=== PATIENT | male | born 1960 | race African-American/Black ===

== ENCOUNTER 2016-08-02 14:19 | Inpatient (IN) | payer OTHER ==
[2016-08-02 17:50] VITALS: BMI 26.6
--- NOTE | 2016-08-02 19:30 | HP ---
Admission ROS [facility] - [facility] Chief Complaint: I WANT TO GO TO REHAB Allergies/Adverse Reactions: Allergies Allergy/AdvReac Type Severity Reaction Status Date / Time peanut Allergy Severe Difficulty Verified 08/02/16 18:09 Breathing History of Present Illness: 55 YEARS OLD MALE WITH LONG HISTORY OF COCAINE NICOTINE DEPENDENCE, HAS DIABETES II HYPERTENSION HYPERLIDIDEMIA, GERD ASTHMA AND DEPRESSION IS ADMITTED TO DETOX Exam Limitations: No Limitations - Ebola screening Have you traveled outside of the country in the last 21 days: No Have you had contact with anyone from an Ebola affected area: No Have you been sick,other than usual withdrawal symptoms: No Do you have a fever: No - Review of Systems Constitutional: No Symptoms Reported EENT: reports: No Symptoms Reported Respiratory: reports: No Symptoms reported Cardiac: reports: No Symptoms Reported GI: reports: No Symptoms Reported : reports: No Symptoms Reported Musculoskeletal: reports: Back Pain Integumentary: reports: No Symptoms Reported Neuro: reports: No Symptoms reported Endocrine: reports: No Symptoms Reported Hematology: reports: No Symptoms Reported Psychiatric: reports: Judgement Intact, Orientated x3, Depressed Other Systems: Reviewed and Negative Patient History - Patient Medical History Hx Anemia: No Hx Asthma: Yes Hx Chronic Obstructive Pulmonary Disease (COPD): No Hx Cancer: No Hx Cardiac Disorders: No Hx Congestive Heart Failure: No Hx Hypertension: Yes Hx Hypercholesterolemia: Yes Hx Pacemaker: No HX Cerebrovascular Accident: No Hx Seizures: No Hx Dementia: No Hx Diabetes: Yes Hx Gastrointestinal Disorders: Yes Hx Liver Disease: No Hx Genitourinary Disorders: No Hx Sexually Transmitted Disorders: No Hx Renal Disease (ESRD): No Hx Thyroid Disease: No Hx Human Immunodeficiency Virus (HIV): No Hx Hepatitis C: No Hx Depression: Yes Hx Suicide Attempt: No Hx Bipolar Disorder: No Hx Schizophrenia: No - Patient Surgical History Past Surgical History: Yes Hx Neurologic Surgery: No Hx Cataract Extraction: No Hx Cardiac Surgery: No Hx Lung Surgery: No Hx Breast Surgery: No Hx Breast Biopsy: No Hx Abdominal Surgery: No Hx Appendectomy: No Hx Cholecystectomy: No Hx Genitourinary Surgery: No Hx Orthopedic Surgery: Yes (RIGHT HAND SHOULDER 2004) Anesthesia Reaction: No - PPD History Previous Implant?: Yes Documented Results: Positive w/o proof Implanted On Prior [facility] Admission?: No PPD to be Administered?: No - Smoking Cessation Smoking history: Current every day smoker Have you smoked in the past 12 months: Yes Aproximately how many cigarettes per day: 7 Cigars Per Day: 0 Hx Chewing Tobacco Use: No Initiated information on smoking cessation: Yes 'Breaking Loose' booklet given: 08/02/16 - Substance & Tx. History Hx Alcohol Use: No Hx Substance Use: Yes Hx Substance Use Treatment: Yes - Substances Abused Cocaine Route: Smoking Frequency: Daily Amount used: 400$ Age of first use: 20 Date of Last Use: 07/31/16 Marijuana/Hashish Route: Smoking Frequency: Daily Amount used: 5 BLUNDS Age of first use: 26 Date of Last Use: 08/02/16 Family Disease History - Family Disease History Family Disease History: Heart Disease: Father Admission Physical Exam S - Vital Signs Vital Signs: Vital Signs - 24 hr 08/02/16 17:48 Temperature 97.3 F L Pulse Rate 91 H Respiratory 18 Rate Blood Pressure 158/103 - Physical General Appearance: Yes: No Apparent Distress, Nourished, Appropriately Dressed HEENTM: Yes: Hearing grossly Normal, Normal ENT Inspection, Normocephalic, Normal Voice Respiratory: Yes: Chest Non-Tender, No Respiratory Distress, No Accessory Muscle Use, Crackles, Wheezing, Expiration Neck: Yes: Supple, Trachea in good position Breast: Yes: Breasts Symetrical Cardiology: Yes: Regular Rhythm, S1, S2, Tachycardia Abdominal: Yes: Non Tender, Soft Genitourinary: Yes: Within Normal Limits Back: Yes: Normal Inspection Musculoskeletal: Yes: full range of Motion, Gait Steady, Back pain, Muscle Pain (RIGHT SHOULDER) Extremities: Yes: Normal Inspection, Normal Range of Motion, Non-Tender Neurological: Yes: Fully Oriented, Alert, Motor Strength 5/5, Normal Response Integumentary: Yes: Warm Lymphatic: Yes: Within Normal Limits - Diagnostic (1) Cocaine dependence, uncomplicated Current Visit: Yes Status: Acute (2) Cannabis dependence, uncomplicated Current Visit: Yes Status: Acute (3) Hypertension Current Visit: Yes Status: Acute Qualifiers: Hypertension type: essential hypertension Qualified Code(s): I10 - Essential (primary) hypertension (4) Diabetes mellitus type II, controlled Current Visit: Yes Status: Acute Qualifiers: Diabetes mellitus complication status: without complication 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: without assisted use Qualified Code(s): E11.9 - Type 2 diabetes mellitus without complications (5) Hyperlipidemia Current Visit: Yes Status: Acute Qualifiers: Hyperlipidemia type: pure hypercholesterolemia Qualified Code(s): E78.0 - Pure hypercholesterolemia (6) Asthma Current Visit: Yes Status: Acute Qualifiers: Asthma severity: mild intermittent Asthma complication type: with status asthmaticus Qualified Code(s): J45.22 - Mild intermittent asthma with status asthmaticus (7) Depression Current Visit: Yes Status: Suspected Qualifiers: Depression Type: dysthymia Qualified Code(s): F34.1 - Dysthymic disorder Comment: WELLBUTRIN + SEROQUEL (8) Nicotine dependence Current Visit: Yes Status: Acute Qualifiers: Nicotine product type: cigarettes Substance use status: in withdrawal Qualified Code(s): F17.213 - Nicotine dependence, cigarettes, with withdrawal (9) Positive PPD, treated Current Visit: Yes Status: Resolved Comment: CHEST X RAY PENDING Cleared for Admission [facility] - Detox or Rehab [facility] Level of Care: Observation Bed Detox Regimen/Protocol: Not Applicable Claeared for Rehab Admission: Yes [facility] Breath Alcohol Content Breath Alcohol Content: 0 Urine Drug Screen - Results Drug Screen Negative: No Urine Drug Screen Results: THC-Marijuana, [place]-Cocaine
[2016-08-02] MEDS ORDERED: MAGNESIUM HYDROX 2400MG/30ML ORAL SUSPENSION 30 ML CUP PO PRN (19:38)
[2016-08-02] MEDS ORDERED: guaiFENesin/D-METHORPHAN HB 10 ML UNIT-DOSE CUPS PO PRN (19:38)
[2016-08-02] MEDS ORDERED: hydrOXYzine PAMOATE 50 MG CAPSULE (FP) PO PRN (19:38)
[2016-08-02] MEDS ORDERED: LOPERAMIDE HCL 2 MG CAPSULE PO PRN (19:38)
[2016-08-02] MEDS ORDERED: NICOTINE POLACRILEX 2 MG GUM BC PRN (19:38)
[2016-08-02] MEDS ORDERED: diphenhydrAMINE HCL 50 MG CAPSULE PO PRN (19:38)
[2016-08-02] MEDS ORDERED: P-EPHED 60MG/TRIPROLIDI 2.5MG TABLET PO PRN (19:38)
[2016-08-02] MEDS ORDERED: MAGNESIUM CITRATE 300 ML BOTTLE PO PRN (19:38)
[2016-08-02] MEDS ORDERED: MENTHOL/PHENOL 1 EACH UD MM PRN (19:38)
[2016-08-02] MEDS: INSULIN SLIDING SCALE (NOVOLOG) 1 VIAL SQ SCH (21:17)
[2016-08-02] MEDS: THIAMINE HCL 100 MG TABLET (FP) PO SCH (21:17)
[2016-08-02] MEDS: LIDOCAINE HCL 5% TOP OINTMENT 50 GM TUBE TP SCH (21:17)
[2016-08-02] MEDS ORDERED: QUEtiapine FUMARATE 300 MG TABLET PO STA (22:34)
[2016-08-02] MEDS ORDERED: PT OWN MED DRAWER 7, Y5N ONE (22:36)
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
[2016-08-03] MEDS ORDERED: glipiZIDE-XL 2.5 MG TAB.ER.24 PO SCH (07:00)
[2016-08-03] MEDS: INSULIN SLIDING SCALE (NOVOLOG) 1 VIAL SQ SCH ×4 (07:33→21:22)
[2016-08-03] MEDS: PRENATAL VITAMINS W/ FOLIC ACID TABLET (FP) PO SCH (09:31)
[2016-08-03] MEDS: ASPIRIN 81 MG CHEWABLE TABLETS PO SCH (09:31)
[2016-08-03] MEDS: NICOTINE 14 MG/24 HOURS TOPICAL PATCH TD SCH (09:33)
[2016-08-03 10:13] LABS: MCH 30.7 pg (25.7-33.7); MCHC 34.9 g/dl (32.0-35.9); MEAN CELL VOLUME 88.1 fl (80-96); MEAN PLT VOLUME 8.5 fl (7.5-11.1); PLATELET COUNT 200 K/MM3 (134-434); RDW 14.2 % (11.9-15.9); WHITE BLOOD COUNT 7.1 K/mm3 (4.0-10.0)
[2016-08-03 10:21] LABS: ALBUMIN 3.3 g/dl (3.4-5.0); ANION GAP 7 (8-16); CALCIUM 8.8 mg/dL (8.5-10.1); CO2 27 mmol/L (21-32); GLUCOSE,RANDOM 101 mg/dL (74-106); SGOT/AST 12 U/L (15-37)
[2016-08-03 10:23] LABS: ALK PHOS 69 U/L (45-117); BILIRUBIN,TOTAL 0.2 mg/dL (0.2-1.0); SGPT/ALT 22 U/L (12-78); TOT PROT 6.6 g/dl (6.4-8.2)
[2016-08-03] MEDS: glipiZIDE-XL 5 MG TAB.ER.24 PO SCH (10:52)
[2016-08-03] MEDS: metFORMIN HCL 500 MG TABLET (FP) PO SCH ×2 (10:52→16:45)
[2016-08-03] MEDS: LIDOCAINE HCL 5% TOP OINTMENT 50 GM TUBE TP SCH ×2 (10:54→21:22)
[2016-08-03] MEDS: PROPRANOLOL HCL 10 MG TABLET (FP) PO SCH ×4 (10:54→21:19)
[2016-08-03] MEDS ORDERED: PNEUMOC 13-VAL CONJ-DIP CRM/PF 0.5 ML DISP.SYRIN IM ONE (12:00)
[2016-08-03] MEDS ORDERED: PNEUMOCOCCAL 23 VACCINE 0.5 ML VIAL IM ONE (12:00)
[2016-08-03] MEDS: PANTOPRAZOLE 40 MG TABLET (FP) PO SCH (12:06)
[2016-08-03] MEDS: ATORVASTATIN CA 20 MG TABLET (FP) PO SCH (12:06)
--- NOTE | 2016-08-03 13:03 | EKG ---
Test Reason : Blood Pressure : / mmHG Vent. Rate : 091 BPM Atrial Rate : 091 BPM P-R Int : 178 ms QRS Dur : 096 ms QT Int : 364 ms P-R-T Axes : -23 074 045 degrees QTc Int : 447 ms NORMAL SINUS RHYTHM VOLTAGE CRITERIA FOR LEFT VENTRICULAR HYPERTROPHY ABNORMAL ECG NO PREVIOUS ECGS AVAILABLE Confirmed by CLARISA HAQ MD ([id number]) on 08/03/2016 1:03:22 PM Referred By: Dahlia Cifuentes Confirmed By:CLARISA HAQ MD
[2016-08-03 13:27] LABS: URINE APPEARANCE CLEAR; URINE BILIRUBIN NEGATIVE (NEGATIVE); URINE BLOOD NEGATIVE (NEGATIVE); URINE COLOR LTYELLOW; URINE GLUCOSE (UA) 2+ (NEGATIVE); URINE KETONE NEGATIVE (NEGATIVE); URINE LEUK ESTERASE NEGATIVE (NEGATIVE); URINE NITRITE NEGATIVE (NEGATIVE); URINE PROTEIN NEGATIVE (NEGATIVE); URINE UROBILINOGEN NEGATIVE E.U./dl (0.2-1.0)
[2016-08-03] MEDS ORDERED: PT OWN MED DRAWER 7, Y5N ONE ×4 (13:40→15:44)
[2016-08-03] MEDS: FLUTICASONE PROP 0.05% 16 GM NASAL SPRAY NS SCH ×2 (13:42→22:24)
[2016-08-03] MEDS: PATIENT'S OWN MEDICATION (NON-FORMULARY) (Fluticasone Propionate [Flovent Diskus] 50 MCG) IH SCH (19:14)
[2016-08-03] MEDS: THIAMINE HCL 100 MG TABLET (FP) PO SCH (21:19)
[2016-08-03] MEDS: QUEtiapine FUMARATE 300 MG TABLET PO SCH (21:21)
[2016-08-04] MEDS: glipiZIDE-XL 5 MG TAB.ER.24 PO SCH (06:09)
[2016-08-04] MEDS: metFORMIN HCL 500 MG TABLET (FP) PO SCH ×2 (06:09→16:51)
[2016-08-04] MEDS: INSULIN SLIDING SCALE (NOVOLOG) 1 VIAL SQ SCH ×4 (06:57→21:28)
[2016-08-04] MEDS ORDERED: PT OWN MED DRAWER 7, Y5N ONE ×3 (08:33→21:29)
[2016-08-04] MEDS: PRENATAL VITAMINS W/ FOLIC ACID TABLET (FP) PO SCH (09:34)
[2016-08-04] MEDS: FLUTICASONE PROP 0.05% 16 GM NASAL SPRAY NS SCH ×2 (09:34→21:29)
[2016-08-04] MEDS: LIDOCAINE HCL 5% TOP OINTMENT 50 GM TUBE TP SCH ×2 (09:34→21:30)
[2016-08-04] MEDS: NICOTINE 14 MG/24 HOURS TOPICAL PATCH TD SCH (09:34)
[2016-08-04] MEDS: PROPRANOLOL HCL 10 MG TABLET (FP) PO SCH ×3 (09:34→21:28)
[2016-08-04] MEDS: ATORVASTATIN CA 20 MG TABLET (FP) PO SCH (09:34)
[2016-08-04] MEDS: ASPIRIN 81 MG CHEWABLE TABLETS PO SCH (09:34)
[2016-08-04] MEDS: PANTOPRAZOLE 40 MG TABLET (FP) PO SCH (09:34)
[2016-08-04] MEDS: ACETAMINOPHEN 325 MG TABLET (FP) PO PRN ×2 (11:33→23:38)
--- NOTE | 2016-08-04 11:53 | PN ---
[facility] Progress Note Note: Pt. C/O headache Vital Signs - 24 hr 08/03/16 08/04/16 08/04/16 20:25 00:30 03:30 Temperature Pulse Rate 93 H Respiratory 16 16 Rate Blood Pressure 167/108 08/04/16 08/04/16 08/04/16 07:11 10:00 11:30 Temperature 98.6 F Pulse Rate 92 H 93 H 95 H Respiratory 18 18 18 Rate Blood Pressure 146/103 154/107 155/104 Dx. : HTN, Uncontrolled P : Lisinopril 20mg BID
[2016-08-04] MEDS: LISINOPRIL 10 MG TABLET (FP) PO SCH ×3 (12:55→21:28)
[2016-08-04] MEDS: THIAMINE HCL 100 MG TABLET (FP) PO SCH (21:27)
[2016-08-04] MEDS: QUEtiapine FUMARATE 300 MG TABLET PO SCH (21:27)
[2016-08-04] MEDS: ALBUTEROL SO4 6.7 GM HFA INHALER IH PRN (21:30)
[2016-08-05] MEDS: glipiZIDE-XL 5 MG TAB.ER.24 PO SCH (07:09)
[2016-08-05] MEDS: metFORMIN HCL 500 MG TABLET (FP) PO SCH ×2 (07:09→16:41)
[2016-08-05] MEDS: INSULIN SLIDING SCALE (NOVOLOG) 1 VIAL SQ SCH ×4 (07:11→22:22)
[2016-08-05] MEDS ORDERED: PT OWN MED DRAWER 7, Y5N ONE ×2 (08:36→21:15)
[2016-08-05] MEDS: PROPRANOLOL HCL 10 MG TABLET (FP) PO SCH ×2 (09:34→21:13)
[2016-08-05] MEDS: LISINOPRIL 10 MG TABLET (FP) PO SCH ×2 (09:34→21:13)
[2016-08-05] MEDS: ASPIRIN 81 MG CHEWABLE TABLETS PO SCH (09:34)
[2016-08-05] MEDS: ATORVASTATIN CA 20 MG TABLET (FP) PO SCH (09:34)
[2016-08-05] MEDS: PANTOPRAZOLE 40 MG TABLET (FP) PO SCH (09:34)
[2016-08-05] MEDS: PRENATAL VITAMINS W/ FOLIC ACID TABLET (FP) PO SCH (09:34)
[2016-08-05] MEDS: NICOTINE 14 MG/24 HOURS TOPICAL PATCH TD SCH (09:34)
[2016-08-05] MEDS: ACETAMINOPHEN 325 MG TABLET (FP) PO PRN (09:34)
[2016-08-05] MEDS: LIDOCAINE HCL 5% TOP OINTMENT 50 GM TUBE TP SCH ×2 (09:35→21:14)
[2016-08-05] MEDS: FLUTICASONE PROP 0.05% 16 GM NASAL SPRAY NS SCH ×2 (09:35→21:13)
[2016-08-05] MEDS ORDERED: INSULIN (NOVOLOG) ASPART 100 UNITS/ML 10ML VIAL ONE (11:33)
[2016-08-05] MEDS: CYCLOBENZAPRINE HCL 10 MG TABLET (FP) PO PRN (16:44)
[2016-08-05] MEDS: IBUPROFEN 600 MG TABLET (FP) PO PRN (16:44)
[2016-08-05] MEDS: QUEtiapine FUMARATE 300 MG TABLET PO SCH (21:13)
[2016-08-05] MEDS: THIAMINE HCL 100 MG TABLET (FP) PO SCH (21:13)
[2016-08-05] MEDS: ALBUTEROL SO4 6.7 GM HFA INHALER IH PRN (21:14)
[2016-08-06] MEDS: metFORMIN HCL 500 MG TABLET (FP) PO SCH ×2 (06:09→16:51)
[2016-08-06] MEDS: glipiZIDE-XL 5 MG TAB.ER.24 PO SCH (06:09)
[2016-08-06] MEDS: INSULIN SLIDING SCALE (NOVOLOG) 1 VIAL SQ SCH ×4 (06:10→21:14)
[2016-08-06] MEDS: IBUPROFEN 600 MG TABLET (FP) PO PRN ×2 (09:04→17:37)
[2016-08-06] MEDS: CYCLOBENZAPRINE HCL 10 MG TABLET (FP) PO PRN ×2 (09:07→17:36)
[2016-08-06] MEDS: PANTOPRAZOLE 40 MG TABLET (FP) PO SCH (09:43)
[2016-08-06] MEDS: PRENATAL VITAMINS W/ FOLIC ACID TABLET (FP) PO SCH (09:43)
[2016-08-06] MEDS: ATORVASTATIN CA 20 MG TABLET (FP) PO SCH (09:43)
[2016-08-06] MEDS: NICOTINE 14 MG/24 HOURS TOPICAL PATCH TD SCH (09:43)
[2016-08-06] MEDS: ASPIRIN 81 MG CHEWABLE TABLETS PO SCH (09:43)
[2016-08-06] MEDS: LISINOPRIL 10 MG TABLET (FP) PO SCH ×2 (09:43→21:15)
[2016-08-06] MEDS: PROPRANOLOL HCL 10 MG TABLET (FP) PO SCH ×2 (09:43→21:15)
[2016-08-06] MEDS: FLUTICASONE PROP 0.05% 16 GM NASAL SPRAY NS SCH ×2 (09:45→21:18)
[2016-08-06] MEDS: LIDOCAINE HCL 5% TOP OINTMENT 50 GM TUBE TP SCH ×2 (10:43→21:17)
[2016-08-06] MEDS ORDERED: PT OWN MED DRAWER 7, Y5N ONE (19:36)
[2016-08-06] MEDS: THIAMINE HCL 100 MG TABLET (FP) PO SCH (21:15)
[2016-08-06] MEDS: QUEtiapine FUMARATE 300 MG TABLET PO SCH (21:15)
[2016-08-07] MEDS: metFORMIN HCL 500 MG TABLET (FP) PO SCH ×2 (07:44→16:51)
[2016-08-07] MEDS: INSULIN SLIDING SCALE (NOVOLOG) 1 VIAL SQ SCH ×4 (07:44→21:19)
[2016-08-07] MEDS: glipiZIDE-XL 5 MG TAB.ER.24 PO SCH (07:44)
[2016-08-07] MEDS: PROPRANOLOL HCL 10 MG TABLET (FP) PO SCH ×2 (09:41→21:14)
[2016-08-07] MEDS: ATORVASTATIN CA 20 MG TABLET (FP) PO SCH (09:41)
[2016-08-07] MEDS: PANTOPRAZOLE 40 MG TABLET (FP) PO SCH (09:41)
[2016-08-07] MEDS: PRENATAL VITAMINS W/ FOLIC ACID TABLET (FP) PO SCH (09:41)
[2016-08-07] MEDS: ASPIRIN 81 MG CHEWABLE TABLETS PO SCH (09:41)
[2016-08-07] MEDS: LISINOPRIL 10 MG TABLET (FP) PO SCH ×2 (09:42→21:14)
[2016-08-07] MEDS: CYCLOBENZAPRINE HCL 10 MG TABLET (FP) PO PRN ×2 (09:44→21:13)
[2016-08-07] MEDS: IBUPROFEN 600 MG TABLET (FP) PO PRN ×2 (09:44→21:13)
[2016-08-07] MEDS: NICOTINE 14 MG/24 HOURS TOPICAL PATCH TD SCH (09:45)
[2016-08-07] MEDS: LIDOCAINE HCL 5% TOP OINTMENT 50 GM TUBE TP SCH ×2 (09:45→21:15)
[2016-08-07] MEDS: FLUTICASONE PROP 0.05% 16 GM NASAL SPRAY NS SCH ×2 (10:34→23:17)
[2016-08-07] MEDS: THIAMINE HCL 100 MG TABLET (FP) PO SCH (21:13)
[2016-08-07] MEDS: QUEtiapine FUMARATE 300 MG TABLET PO SCH (21:13)
[2016-08-07] MEDS ORDERED: PT OWN MED DRAWER 7, Y5N ONE (21:15)
[2016-08-07] MEDS ORDERED: INSULIN (NOVOLOG) ASPART 100 UNITS/ML 10ML VIAL ONE (21:18)
[2016-08-08] MEDS: INSULIN SLIDING SCALE (NOVOLOG) 1 VIAL SQ SCH ×3 (07:21→16:49)
[2016-08-08] MEDS: glipiZIDE-XL 5 MG TAB.ER.24 PO SCH (07:21)
[2016-08-08] MEDS: metFORMIN HCL 500 MG TABLET (FP) PO SCH ×2 (07:21→16:47)
[2016-08-08] MEDS: ASPIRIN 81 MG CHEWABLE TABLETS PO SCH (09:38)
[2016-08-08] MEDS: LISINOPRIL 10 MG TABLET (FP) PO SCH ×2 (09:38→21:16)
[2016-08-08] MEDS: PROPRANOLOL HCL 10 MG TABLET (FP) PO SCH ×2 (09:38→21:16)
[2016-08-08] MEDS: PANTOPRAZOLE 40 MG TABLET (FP) PO SCH (09:38)
[2016-08-08] MEDS: NICOTINE 14 MG/24 HOURS TOPICAL PATCH TD SCH (09:38)
[2016-08-08] MEDS: PRENATAL VITAMINS W/ FOLIC ACID TABLET (FP) PO SCH (09:38)
[2016-08-08] MEDS: ATORVASTATIN CA 20 MG TABLET (FP) PO SCH (09:38)
[2016-08-08] MEDS: LIDOCAINE HCL 5% TOP OINTMENT 50 GM TUBE TP SCH ×2 (09:40→21:18)
[2016-08-08] MEDS: FLUTICASONE PROP 0.05% 16 GM NASAL SPRAY NS SCH ×2 (09:40→21:16)
[2016-08-08] MEDS ORDERED: PT OWN MED DRAWER 7, Y5N ONE (19:23)
[2016-08-08] MEDS: QUEtiapine FUMARATE 300 MG TABLET PO SCH (21:16)
[2016-08-08] MEDS: THIAMINE HCL 100 MG TABLET (FP) PO SCH (21:16)
[2016-08-09] MEDS: glipiZIDE-XL 5 MG TAB.ER.24 PO SCH (06:02)
[2016-08-09] MEDS: metFORMIN HCL 500 MG TABLET (FP) PO SCH ×2 (06:02→16:50)
[2016-08-09] MEDS: INSULIN SLIDING SCALE (NOVOLOG) 1 VIAL SQ SCH ×2 (06:04→17:52)
[2016-08-09] MEDS: ASPIRIN 81 MG CHEWABLE TABLETS PO SCH (09:36)
[2016-08-09] MEDS: FLUTICASONE PROP 0.05% 16 GM NASAL SPRAY NS SCH ×2 (09:37→21:09)
[2016-08-09] MEDS: PANTOPRAZOLE 40 MG TABLET (FP) PO SCH (09:37)
[2016-08-09] MEDS: ATORVASTATIN CA 20 MG TABLET (FP) PO SCH (09:37)
[2016-08-09] MEDS: PROPRANOLOL HCL 10 MG TABLET (FP) PO SCH ×2 (09:37→21:08)
[2016-08-09] MEDS: LIDOCAINE HCL 5% TOP OINTMENT 50 GM TUBE TP SCH ×2 (09:37→21:09)
[2016-08-09] MEDS: LISINOPRIL 10 MG TABLET (FP) PO SCH ×2 (09:37→21:08)
[2016-08-09] MEDS: PRENATAL VITAMINS W/ FOLIC ACID TABLET (FP) PO SCH (09:37)
[2016-08-09] MEDS: NICOTINE 14 MG/24 HOURS TOPICAL PATCH TD SCH (09:37)
[2016-08-09] MEDS: ALBUTEROL SO4 6.7 GM HFA INHALER IH PRN (09:39)
[2016-08-09] MEDS: CYCLOBENZAPRINE HCL 10 MG TABLET (FP) PO PRN (16:51)
[2016-08-09] MEDS: IBUPROFEN 600 MG TABLET (FP) PO PRN (16:51)
[2016-08-09] MEDS: THIAMINE HCL 100 MG TABLET (FP) PO SCH (21:08)
[2016-08-09] MEDS: QUEtiapine FUMARATE 300 MG TABLET PO SCH (21:08)
[2016-08-09] MEDS ORDERED: PT OWN MED DRAWER 7, Y5N ONE (21:09)
[2016-08-10] MEDS: glipiZIDE-XL 5 MG TAB.ER.24 PO SCH (07:30)
[2016-08-10] MEDS: INSULIN SLIDING SCALE (NOVOLOG) 1 VIAL SQ SCH ×2 (07:30→16:50)
[2016-08-10] MEDS: metFORMIN HCL 500 MG TABLET (FP) PO SCH ×2 (07:30→16:49)
[2016-08-10] MEDS: ASPIRIN 81 MG CHEWABLE TABLETS PO SCH (09:53)
[2016-08-10] MEDS: PANTOPRAZOLE 40 MG TABLET (FP) PO SCH (09:53)
[2016-08-10] MEDS: PROPRANOLOL HCL 10 MG TABLET (FP) PO SCH ×2 (09:53→21:10)
[2016-08-10] MEDS: LISINOPRIL 10 MG TABLET (FP) PO SCH ×2 (09:53→21:11)
[2016-08-10] MEDS: PRENATAL VITAMINS W/ FOLIC ACID TABLET (FP) PO SCH (09:53)
[2016-08-10] MEDS: ATORVASTATIN CA 20 MG TABLET (FP) PO SCH (09:53)
[2016-08-10] MEDS: NICOTINE 14 MG/24 HOURS TOPICAL PATCH TD SCH (09:53)
[2016-08-10] MEDS: FLUTICASONE PROP 0.05% 16 GM NASAL SPRAY NS SCH ×2 (09:54→21:12)
[2016-08-10] MEDS: LIDOCAINE HCL 5% TOP OINTMENT 50 GM TUBE TP SCH ×2 (09:55→21:12)
--- NOTE | 2016-08-10 11:19 | PN ---
[facility] Progress Note Note: Patient reported to nursing staff yesterday that he is given an injection every 2 weeks. A consent from patient was faxed to [facility] where patient receives psychiatric outpatient services requesting information about patient's diagnosis and treatment. Received return fax from [facility] this morning with information requested. According to the fax, patient is diagnosed with Bipolar I Disorder, Most Recent Episode Hypomanic and Polysubstance use Disorder. He is on Wellbutrin XL 300 mg po daily, Seroquel 300 mg po HS and Prolixin Decanoate 37.5 mg IM ever 2 weeks. He last got that injection on 07/31/16 and next one is due on 08/14/16
[2016-08-10] MEDS: THIAMINE HCL 100 MG TABLET (FP) PO SCH (21:06)
[2016-08-10] MEDS: CYCLOBENZAPRINE HCL 10 MG TABLET (FP) PO PRN (21:09)
[2016-08-10] MEDS: QUEtiapine FUMARATE 300 MG TABLET PO SCH (21:10)
[2016-08-10] MEDS: IBUPROFEN 600 MG TABLET (FP) PO PRN (21:10)
[2016-08-10] MEDS: ALBUTEROL SO4 6.7 GM HFA INHALER IH PRN (21:11)
[2016-08-10] MEDS ORDERED: PT OWN MED DRAWER 7, Y5N ONE (21:12)
[2016-08-11] MEDS: metFORMIN HCL 500 MG TABLET (FP) PO SCH ×2 (07:20→16:48)
[2016-08-11] MEDS: INSULIN SLIDING SCALE (NOVOLOG) 1 VIAL SQ SCH ×2 (07:21→16:49)
[2016-08-11] MEDS: glipiZIDE-XL 5 MG TAB.ER.24 PO SCH (07:21)
[2016-08-11] MEDS: LIDOCAINE HCL 5% TOP OINTMENT 50 GM TUBE TP SCH ×2 (09:30→21:30)
[2016-08-11] MEDS: FLUTICASONE PROP 0.05% 16 GM NASAL SPRAY NS SCH ×2 (09:30→21:29)
[2016-08-11] MEDS: PROPRANOLOL HCL 10 MG TABLET (FP) PO SCH ×2 (09:31→21:28)
[2016-08-11] MEDS: ATORVASTATIN CA 20 MG TABLET (FP) PO SCH (09:31)
[2016-08-11] MEDS: PANTOPRAZOLE 40 MG TABLET (FP) PO SCH (09:31)
[2016-08-11] MEDS: PRENATAL VITAMINS W/ FOLIC ACID TABLET (FP) PO SCH (09:31)
[2016-08-11] MEDS: LISINOPRIL 10 MG TABLET (FP) PO SCH ×2 (09:31→21:28)
[2016-08-11] MEDS: ASPIRIN 81 MG CHEWABLE TABLETS PO SCH (09:31)
[2016-08-11] MEDS: NICOTINE 14 MG/24 HOURS TOPICAL PATCH TD SCH (09:32)
[2016-08-11] MEDS: IBUPROFEN 600 MG TABLET (FP) PO PRN (21:27)
[2016-08-11] MEDS: CYCLOBENZAPRINE HCL 10 MG TABLET (FP) PO PRN (21:27)
[2016-08-11] MEDS: QUEtiapine FUMARATE 300 MG TABLET PO SCH (21:28)
[2016-08-11] MEDS: THIAMINE HCL 100 MG TABLET (FP) PO SCH (21:29)
[2016-08-12] MEDS: metFORMIN HCL 500 MG TABLET (FP) PO SCH ×2 (07:40→16:52)
[2016-08-12] MEDS: glipiZIDE-XL 5 MG TAB.ER.24 PO SCH (07:40)
[2016-08-12] MEDS: INSULIN SLIDING SCALE (NOVOLOG) 1 VIAL SQ SCH ×2 (07:40→16:54)
[2016-08-12] MEDS: PROPRANOLOL HCL 10 MG TABLET (FP) PO SCH ×2 (09:36→21:23)
[2016-08-12] MEDS: PANTOPRAZOLE 40 MG TABLET (FP) PO SCH (09:36)
[2016-08-12] MEDS: ASPIRIN 81 MG CHEWABLE TABLETS PO SCH (09:36)
[2016-08-12] MEDS: PRENATAL VITAMINS W/ FOLIC ACID TABLET (FP) PO SCH (09:36)
[2016-08-12] MEDS: ATORVASTATIN CA 20 MG TABLET (FP) PO SCH (09:36)
[2016-08-12] MEDS: LISINOPRIL 10 MG TABLET (FP) PO SCH ×2 (09:36→21:23)
[2016-08-12] MEDS: NICOTINE 14 MG/24 HOURS TOPICAL PATCH TD SCH (09:37)
[2016-08-12] MEDS: FLUTICASONE PROP 0.05% 16 GM NASAL SPRAY NS SCH ×2 (09:37→21:47)
[2016-08-12] MEDS: LIDOCAINE HCL 5% TOP OINTMENT 50 GM TUBE TP SCH ×2 (09:37→21:24)
[2016-08-12] MEDS: CYCLOBENZAPRINE HCL 10 MG TABLET (FP) PO PRN (09:37)
[2016-08-12] MEDS ORDERED: PT OWN MED DRAWER 7, Y5N ONE (16:56)
[2016-08-12] MEDS: ACETAMINOPHEN 325 MG TABLET (FP) PO PRN (21:22)
[2016-08-12] MEDS: QUEtiapine FUMARATE 300 MG TABLET PO SCH (21:23)
[2016-08-12] MEDS: THIAMINE HCL 100 MG TABLET (FP) PO SCH (21:24)
[2016-08-13] MEDS: glipiZIDE-XL 5 MG TAB.ER.24 PO SCH (06:40)
[2016-08-13] MEDS: metFORMIN HCL 500 MG TABLET (FP) PO SCH ×2 (06:40→16:51)
[2016-08-13] MEDS: INSULIN SLIDING SCALE (NOVOLOG) 1 VIAL SQ SCH ×2 (06:41→16:52)
[2016-08-13] MEDS: PRENATAL VITAMINS W/ FOLIC ACID TABLET (FP) PO SCH (09:57)
[2016-08-13] MEDS: ASPIRIN 81 MG CHEWABLE TABLETS PO SCH (09:57)
[2016-08-13] MEDS: PROPRANOLOL HCL 10 MG TABLET (FP) PO SCH ×2 (09:58→21:17)
[2016-08-13] MEDS: LISINOPRIL 10 MG TABLET (FP) PO SCH ×2 (09:58→21:16)
[2016-08-13] MEDS: PANTOPRAZOLE 40 MG TABLET (FP) PO SCH (09:58)
[2016-08-13] MEDS: FLUTICASONE PROP 0.05% 16 GM NASAL SPRAY NS SCH ×2 (09:59→21:18)
[2016-08-13] MEDS: LIDOCAINE HCL 5% TOP OINTMENT 50 GM TUBE TP SCH ×2 (10:00→21:17)
[2016-08-13] MEDS: ATORVASTATIN CA 20 MG TABLET (FP) PO SCH (10:00)
[2016-08-13] MEDS: NICOTINE 14 MG/24 HOURS TOPICAL PATCH TD SCH (10:00)
[2016-08-13] MEDS ORDERED: PT OWN MED DRAWER 7, Y5N ONE ×2 (10:02→21:16)
[2016-08-13] MEDS: ACETAMINOPHEN 325 MG TABLET (FP) PO PRN (10:02)
[2016-08-13] MEDS: THIAMINE HCL 100 MG TABLET (FP) PO SCH (21:16)
[2016-08-13] MEDS: CYCLOBENZAPRINE HCL 10 MG TABLET (FP) PO PRN (21:16)
[2016-08-13] MEDS: QUEtiapine FUMARATE 300 MG TABLET PO SCH (21:17)
[2016-08-13] MEDS: ALBUTEROL SO4 6.7 GM HFA INHALER IH PRN (21:18)
[2016-08-14] MEDS: INSULIN SLIDING SCALE (NOVOLOG) 1 VIAL SQ SCH ×2 (07:36→16:49)
[2016-08-14] MEDS: metFORMIN HCL 500 MG TABLET (FP) PO SCH ×2 (07:36→16:48)
[2016-08-14] MEDS: glipiZIDE-XL 5 MG TAB.ER.24 PO SCH (07:36)
[2016-08-14] MEDS ORDERED: PT OWN MED DRAWER 7, Y5N ONE ×2 (08:29→21:12)
[2016-08-14] MEDS: ASPIRIN 81 MG CHEWABLE TABLETS PO SCH (09:33)
[2016-08-14] MEDS: PROPRANOLOL HCL 10 MG TABLET (FP) PO SCH ×2 (09:33→21:10)
[2016-08-14] MEDS: LISINOPRIL 10 MG TABLET (FP) PO SCH ×2 (09:33→21:11)
[2016-08-14] MEDS: PANTOPRAZOLE 40 MG TABLET (FP) PO SCH (09:33)
[2016-08-14] MEDS: ATORVASTATIN CA 20 MG TABLET (FP) PO SCH (09:33)
[2016-08-14] MEDS: NICOTINE 14 MG/24 HOURS TOPICAL PATCH TD SCH (09:34)
[2016-08-14] MEDS: LIDOCAINE HCL 5% TOP OINTMENT 50 GM TUBE TP SCH ×2 (09:34→21:12)
[2016-08-14] MEDS: FLUTICASONE PROP 0.05% 16 GM NASAL SPRAY NS SCH ×2 (09:34→21:11)
[2016-08-14] MEDS: PRENATAL VITAMINS W/ FOLIC ACID TABLET (FP) PO SCH (09:34)
[2016-08-14] MEDS ORDERED: fluPHENAZine DECANOATE 125 MG/5ML VIAL IM ONE (10:00)
[2016-08-14] MEDS: QUEtiapine FUMARATE 300 MG TABLET PO SCH (21:10)
[2016-08-14] MEDS: THIAMINE HCL 100 MG TABLET (FP) PO SCH (21:10)
[2016-08-14] MEDS: CYCLOBENZAPRINE HCL 10 MG TABLET (FP) PO PRN (21:10)
[2016-08-14] MEDS: ALBUTEROL SO4 6.7 GM HFA INHALER IH PRN (21:12)
[2016-08-15] MEDS: metFORMIN HCL 500 MG TABLET (FP) PO SCH ×2 (07:07→16:42)
[2016-08-15] MEDS: glipiZIDE-XL 5 MG TAB.ER.24 PO SCH (07:07)
[2016-08-15] MEDS: INSULIN SLIDING SCALE (NOVOLOG) 1 VIAL SQ SCH ×2 (07:07→16:43)
[2016-08-15] MEDS: MAG HYDROX/AL HYDROX/SIMETH 30 ML UNIT-DOSE CUP PO PRN ×2 (07:07→14:40)
--- NOTE | 2016-08-15 07:45 | PN ---
Psychiatric Progress Note Vital Signs: Vital Signs Period Temp Pulse Resp BP Sys/Rivas Pulse Ox Last 24 Hr 98.5 F 96-111 18-20 113-120/68-76 Date of Session: 08/15/16 Chief Complaint:: Psychiatrist Discharge Note HPI: Patient addressing Cocaine, Cannabis Dependence and Alcohol Abuse comorbid with Nicotine Dependence and Bipolar I Disorder ROS: Asthma, HTN, Hyperlipidemia, type 2 DM were medically managed Current Medications: Active Medications Generic Name Dose Route Start Last Admin Trade Name Freq PRN Reason Stop Dose Admin Acetaminophen 650 mg 08/02/16 19:38 08/13/16 10:02 Tylenol - PO 650 mg Q4H PRN Administration PAIN Al Hydroxide/Mg Hydroxide 30 ml 08/02/16 19:38 08/15/16 07:07 Mylanta Oral Suspension - PO 30 ml Q6H PRN Administration DYSPEPSIA Albuterol Sulfate 2 puff 08/02/16 19:48 08/14/16 21:12 Ventolin Hfa Inhaler - IH 2 puff Q4H PRN Administration SHORT OF BREATH/WHEEZING Aspirin 81 mg 08/03/16 10:00 08/14/16 09:33 Asa - PO 81 mg DAILY OLIVERIO Administration Atorvastatin Calcium 20 mg 08/03/16 11:24 08/14/16 09:33 Lipitor - PO 20 mg DAILY OLIVERIO Administration Bupropion HCl 300 mg 08/03/16 11:45 08/14/16 09:34 Wellbutrin Xl - PO 300 mg DAILY OLIVERIO Administration Cyclobenzaprine HCl 10 mg 08/05/16 16:28 08/14/16 21:10 Flexeril - PO 10 mg TID PRN Administration MUSCLE SPASMS Diphenhydramine HCl 50 mg 08/02/16 19:38 Benadryl - PO HSMR1 PRN INSOMNIA Eucalyptus/Menthol/Phenol/Sorbitol 1 each 08/02/16 19:38 Cepastat Lozenge - MM Q4H PRN SORE THROAT Fluticasone Propionate 1 spray 08/03/16 12:00 08/14/16 21:11 Flonase - NS Not Given BID OLIVERIO Glipizide 5 mg 08/03/16 10:00 08/15/16 07:07 Glucotrol Xl - PO 5 mg DAILY@0700 OLIVERIO Administration Guaifenesin 10 ml 08/02/16 19:38 Robitussin Dm - PO Q6H PRN COUGH Hydroxyzine Pamoate 50 mg 08/02/16 19:38 Vistaril - PO Q4H PRN AGITATION Ibuprofen 600 mg 08/05/16 16:27 08/11/16 21:27 Motrin - PO 600 mg Q4H PRN Administration PAIN Insulin Aspart 1 vial 08/08/16 16:30 08/15/16 07:07 Novolog Vial Sliding Scale - SQ Not Given BIDAC [facility] Protocol Lidocaine HCl 1 applic 08/02/16 22:00 08/14/16 21:12 Xylocaine 5% Top. Ointment TP 1 applic BID OLIVERIO Administration Lisinopril 20 mg 08/04/16 12:00 08/14/16 21:11 Prinivil PO 20 mg BID OLIVERIO Administration Loperamide HCl 4 mg 08/02/16 19:38 Imodium - PO Q6H PRN DIARRHEA Magnesium Citrate 300 ml 08/02/16 19:38 Citroma - PO Q48H PRN CONSTIPATION Magnesium Hydroxide 30 ml 08/02/16 19:38 Milk Of Magnesia - PO DAILY PRN CONSTIPATION Metformin HCl 1,000 mg 08/03/16 10:00 08/15/16 07:07 Glucophage - PO 1,000 mg BID@0700,1630 [facility] Administration Nicotine 14 mg 08/03/16 10:00 08/14/16 09:34 Nicoderm Patch - TD Not Given DAILY OLIVERIO Nicotine Polacrilex 2 mg 08/02/16 19:38 Nicorette Gum - BC Q2H PRN NICOTINE REPLACEMENT RX Pantoprazole Sodium 40 mg 08/03/16 11:20 08/14/16 09:33 Protonix - PO 40 mg DAILY OLIVERIO Administration Multivit/Folic Acid/Iron 1 tab 08/03/16 10:00 08/14/16 09:34 Vitamins ([facility]) - PO 1 tab DAILY [facility] Administration Propranolol HCl 10 mg 08/02/16 10:15 08/14/16 21:10 Inderal - PO 10 mg BID OLIVERIO Administration Pseudoephedrine/Triprolidine 1 combo 08/02/16 19:38 Actifed - PO TID PRN NASAL CONGESTION Quetiapine Fumarate 300 mg 08/03/16 22:00 08/14/16 21:10 Seroquel - PO 300 mg HS OLIVERIO Administration Thiamine HCl 100 mg 08/02/16 22:00 08/14/16 21:10 Vitamin B1 - PO 100 mg HS OLIVERIO Administration Current Side Effect: No Lab tests ordered: Yes Lab tests reviewed: Yes Provider note:: Patient will complete this program on 08/15/16. He has met his treatment goals and will continue to address his issues in outpatient treatment at [facility]. 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 He responded well to Wellbutrin XL 300 mg po daily, Seroquel 300 mg po HS and Prolixin Decanoate 37.5 mg IM administered last on 08/14/16(next due on 08/28/16) . Scripts for 30 days supply of medications(Wellbutrin XL & Seroquel) will be electronically transmitted to [facility] at [address] [place] [address] . He is stable for discharge on 08/15/16 Total face to face time:: 35 Mental Status Exam - Mental Status Exam Alert and Oriented to: Time, Place, Person Cognitive Function: Fair Patient Appearance: Well Groomed Mood: Hopeful, Euthymic Affect: Appropriate Patient Behavior: Cooperative Speech Pattern: Clear Voice Loudness: Normal Thought Process: Intact Thought Disorder: Not Present Hallucinations: Denies Suicidal Ideation: Denies Homicidal Ideation: Denies Insight/Judgement: Fair Sleep: Fair Appetite: Good Muscle strength/Tone: Normal Gait/Station: Normal Psychiatric Treatment Plan - Problem List (1) Cocaine dependence, uncomplicated Current Visit: Yes (2) Cannabis dependence, uncomplicated Current Visit: Yes (3) Alcohol abuse Current Visit: Yes (4) Nicotine dependence Current Visit: Yes (5) Asthma Current Visit: Yes Qualifiers: Asthma severity: mild intermittent Asthma complication type: with status asthmaticus Qualified Code(s): J45.22 - Mild intermittent asthma with status asthmaticus (6) Diabetes mellitus type II, controlled Current Visit: Yes Qualifiers: Diabetes mellitus complication status: without complication Diabetes mellitus custodial insulin use: without custodial use Qualified Code(s): E11.9 - Type 2 diabetes mellitus without complications (7) Hyperlipidemia Current Visit: Yes Qualifiers: Hyperlipidemia type: pure hypercholesterolemia Qualified Code(s): E78.00 - Pure hypercholesterolemia, unspecified; E78.0 - Pure hypercholesterolemia (8) Hypertension Current Visit: Yes Qualifiers: Hypertension type: essential hypertension Qualified Code(s): I10 - Essential (primary) hypertension (9) MDD (major depressive disorder), recurrent, severe, with psychosis Current Visit: Yes Initial treatment plan: Patient will be discharged tomorrow and referred to [facility] for outpatient treatment
[2016-08-15] MEDS: FLUTICASONE PROP 0.05% 16 GM NASAL SPRAY NS SCH ×2 (09:30→21:16)
[2016-08-15] MEDS: ASPIRIN 81 MG CHEWABLE TABLETS PO SCH (09:30)
[2016-08-15] MEDS: ATORVASTATIN CA 20 MG TABLET (FP) PO SCH (09:30)
[2016-08-15] MEDS: NICOTINE 14 MG/24 HOURS TOPICAL PATCH TD SCH (09:30)
[2016-08-15] MEDS: LISINOPRIL 10 MG TABLET (FP) PO SCH ×2 (09:30→21:15)
[2016-08-15] MEDS: PROPRANOLOL HCL 10 MG TABLET (FP) PO SCH ×2 (09:30→21:15)
[2016-08-15] MEDS: PRENATAL VITAMINS W/ FOLIC ACID TABLET (FP) PO SCH (09:30)
[2016-08-15] MEDS: PANTOPRAZOLE 40 MG TABLET (FP) PO SCH (09:33)
[2016-08-15] MEDS: LIDOCAINE HCL 5% TOP OINTMENT 50 GM TUBE TP SCH ×2 (09:33→21:16)
[2016-08-15] MEDS: THIAMINE HCL 100 MG TABLET (FP) PO SCH (21:14)
[2016-08-15] MEDS: QUEtiapine FUMARATE 300 MG TABLET PO SCH (21:14)
[2016-08-15] MEDS: CYCLOBENZAPRINE HCL 10 MG TABLET (FP) PO PRN (21:14)
[2016-08-15] MEDS: ALBUTEROL SO4 6.7 GM HFA INHALER IH PRN (21:16)
[2016-08-15] MEDS ORDERED: PT OWN MED DRAWER 7, Y5N ONE (21:16)
[2016-08-16 06:44] VITALS: TEMP 97.4
[2016-08-16] MEDS: metFORMIN HCL 500 MG TABLET (FP) PO SCH (07:24)
[2016-08-16] MEDS: glipiZIDE-XL 5 MG TAB.ER.24 PO SCH (07:24)
[2016-08-16] MEDS: INSULIN SLIDING SCALE (NOVOLOG) 1 VIAL SQ SCH (07:25)
[2016-08-16 09:44] VITALS: BP 138/79; PULSE 105
[2016-08-16] MEDS: PROPRANOLOL HCL 10 MG TABLET (FP) PO SCH (09:53)
[2016-08-16] MEDS: PANTOPRAZOLE 40 MG TABLET (FP) PO SCH (09:53)
[2016-08-16] MEDS: LISINOPRIL 10 MG TABLET (FP) PO SCH (09:53)
[2016-08-16] MEDS: PRENATAL VITAMINS W/ FOLIC ACID TABLET (FP) PO SCH (09:53)
[2016-08-16] MEDS: ASPIRIN 81 MG CHEWABLE TABLETS PO SCH (09:53)
[2016-08-16] MEDS: NICOTINE 14 MG/24 HOURS TOPICAL PATCH TD SCH (09:54)
[2016-08-16] MEDS: LIDOCAINE HCL 5% TOP OINTMENT 50 GM TUBE TP SCH (09:54)
[2016-08-16] MEDS: ATORVASTATIN CA 20 MG TABLET (FP) PO SCH (09:54)
[2016-08-16] MEDS: CYCLOBENZAPRINE HCL 10 MG TABLET (FP) PO PRN (09:54)
[2016-08-16] MEDS: FLUTICASONE PROP 0.05% 16 GM NASAL SPRAY NS SCH (09:54)
== END 2016-08-16 10:19 | disposition home or self-care (01) | DRG 895 ==
LOC: YASAS 14:19 → Y3W 18:53
PROVIDERS: ADMIT Psychiatry & Neurology Psychiatry; ATTEND Psychiatry & Neurology Psychiatry
PROC: HZ42ZZZ Group Counseling for Substance Abuse Treatment, Cognitive-Behavioral (ICD-10-PCS; principal; 2016-08-02)
DX: F14.20 Cocaine dependence, uncomplicated (principal); F33.3 Major depressive disorder, recurrent, severe with psychotic symptoms; J45.22 Mild intermittent asthma with status asthmaticus; F12.20 Cannabis dependence, uncomplicated; F10.10 Alcohol abuse, uncomplicated; F17.210 Nicotine dependence, cigarettes, uncomplicated; I10 Essential (primary) hypertension; E78.5 Hyperlipidemia, unspecified; E11.9 Type 2 diabetes mellitus without complications; K21.9 Gastro-esophageal reflux disease without esophagitis; R00.0 Tachycardia, unspecified; R76.11 Nonspecific reaction to tuberculin skin test without active tuberculosis
CPT/HCPCS: 36415; 71020-TC; 80053; 81003; 85027; 86593; 90732; 93005; 93010; G0009

== ENCOUNTER 2020-10-01 10:46 | Inpatient (IN) | payer OTHER ==
[2020-10-01 12:08] VITALS: BMI 26.1
[2020-10-01] MEDS ORDERED: NICOTINE POLACRILEX 2 MG GUM BC PRN (16:59)
[2020-10-01] MEDS ORDERED: MAG HYDROX/AL HYDROX/SIMETH 30 ML UNIT-DOSE CUP PO PRN (16:59)
[2020-10-01] MEDS ORDERED: MAGNESIUM CITRATE 300 ML BOTTLE PO PRN (16:59)
[2020-10-01] MEDS ORDERED: LOPERAMIDE HCL 2 MG CAPSULE PO PRN (16:59)
[2020-10-01] MEDS ORDERED: IBUPROFEN 400 MG TABLET (FP) PO PRN (16:59)
[2020-10-01] MEDS ORDERED: MAGNESIUM HYDROX 2400MG/30ML ORAL SUSPENSION 30 ML CUP PO PRN (16:59)
[2020-10-01] MEDS ORDERED: P-EPHED 60MG/TRIPROLIDI 2.5MG TABLET PO PRN (16:59)
[2020-10-01] MEDS ORDERED: guaiFENesin 200 MG/10 ML 10 ML UNIT-DOSE CUPS PO PRN (16:59)
[2020-10-01] MEDS ORDERED: ACETAMINOPHEN 325 MG TABLET (FP) PO PRN (16:59)
[2020-10-01] MEDS ORDERED: ALBUTEROL SO4 HFA INHALER IH PRN (17:55)
[2020-10-01] MEDS: MELATONIN 5 MG TABLETS PO SCH (21:39)
[2020-10-01] MEDS: FLUTICASONE PROP 0.05% 16 GM NASAL SPRAY NS SCH (21:39)
[2020-10-01] MEDS: THIAMINE HCL 100 MG TABLET (FP) PO SCH (21:39)
[2020-10-01] MEDS: hydrOXYzine PAMOATE 25 MG CAPSULE (FP) PO PRN (21:40)
[2020-10-02 02:09] LABS: EPI CELLS 3 /uL (0-25.1); HYALINE CASTS 0 /uL (0-3.1); PH,URINE 5.5 (5.0-8.0); URINE APPEARANCE CLEAR; URINE BACTERIA 17 /uL (0-1359); URINE BILIRUBIN NEGATIVE (NEGATIVE); URINE COLOR YELLOW; URINE GLUCOSE (UA) 2+ (NEGATIVE); URINE KETONE TRACE (NEGATIVE); URINE LEUK ESTERASE NEGATIVE (NEGATIVE); URINE NITRITE NEGATIVE (NEGATIVE); URINE PROTEIN 1+ (NEGATIVE); URINE RBC 6 /uL (0-23.9); URINE WBC 8 /uL (0-25.8)
[2020-10-02] MEDS: glipiZIDE-XL 5 MG TAB.ER.24 PO SCH (06:13)
[2020-10-02] MEDS: LISINOPRIL 10 MG TABLET PO SCH (10:24)
[2020-10-02] MEDS: PANTOPRAZOLE 40 MG TABLET PO SCH (10:24)
[2020-10-02] MEDS: ASPIRIN 81 MG CHEWABLE TABLETS PO SCH (10:24)
[2020-10-02] MEDS: TAMSULOSIN HCL 0.4 MG CAP PO SCH (10:24)
[2020-10-02] MEDS: PRENATAL VITAMINS W/ FOLIC ACID TABLET (FP) PO SCH (10:24)
[2020-10-02] MEDS: FLUTICASONE PROP 0.05% 16 GM NASAL SPRAY NS SCH ×2 (10:24→21:18)
[2020-10-02 12:19] LABS: CALCIUM 8.2 mg/dL (8.5-10.1); HEMATOCRIT 32.8 % (35.4-49); HEMOGLOBIN 11.7 GM/dL (11.7-16.9); MCH 31.2 pg (25.7-33.7); MCHC 35.8 g/dl (32.0-35.9); MEAN CELL VOLUME 87.1 fl (80-96); MEAN PLT VOLUME 8.7 fl (7.5-11.1); PLATELET COUNT 194 K/MM3 (134-434); RBC 3.77 M/mm3 (4.00-5.60); RDW 14.1 % (11.9-15.9); WHITE BLOOD COUNT 4.6 K/mm3 (4.0-10.0)
[2020-10-02 12:20] LABS: BLOOD UREA NITROGEN 15.3 mg/dL (7-18)
[2020-10-02 12:23] LABS: CREATININE 1.3 mg/dL (0.55-1.3)
[2020-10-02 12:24] LABS: BILIRUBIN,TOTAL 0.4 mg/dL (0.2-1)
[2020-10-02 12:25] LABS: TOT PROT 6.6 g/dl (6.4-8.2)
[2020-10-02] MEDS: MELATONIN 5 MG TABLETS PO SCH (21:18)
[2020-10-02] MEDS: THIAMINE HCL 100 MG TABLET (FP) PO SCH (21:18)
[2020-10-02] MEDS: hydrOXYzine PAMOATE 25 MG CAPSULE (FP) PO PRN (21:20)
[2020-10-03] MEDS: glipiZIDE-XL 5 MG TAB.ER.24 PO SCH (06:29)
[2020-10-03] MEDS: TAMSULOSIN HCL 0.4 MG CAP PO SCH (07:39)
[2020-10-03] MEDS: PRENATAL VITAMINS W/ FOLIC ACID TABLET (FP) PO SCH (09:56)
[2020-10-03] MEDS: LISINOPRIL 10 MG TABLET PO SCH (09:57)
[2020-10-03] MEDS: PANTOPRAZOLE 40 MG TABLET PO SCH (09:57)
[2020-10-03] MEDS: ASPIRIN 81 MG CHEWABLE TABLETS PO SCH (09:57)
[2020-10-03] MEDS: hydrOXYzine PAMOATE 25 MG CAPSULE (FP) PO PRN ×2 (09:57→21:22)
[2020-10-03] MEDS: FLUTICASONE PROP 0.05% 16 GM NASAL SPRAY NS SCH ×2 (09:58→21:22)
[2020-10-03] MEDS: MELATONIN 5 MG TABLETS PO SCH (21:21)
[2020-10-03] MEDS: THIAMINE HCL 100 MG TABLET (FP) PO SCH (21:21)
[2020-10-04 06:06] LABS: SARS-CoV-2 NAA Not Detected (Not Detected)
[2020-10-04] MEDS: glipiZIDE-XL 5 MG TAB.ER.24 PO SCH (06:09)
[2020-10-04] MEDS: TAMSULOSIN HCL 0.4 MG CAP PO SCH (07:41)
[2020-10-04] MEDS: PRENATAL VITAMINS W/ FOLIC ACID TABLET (FP) PO SCH (10:00)
[2020-10-04] MEDS: PANTOPRAZOLE 40 MG TABLET PO SCH (10:01)
[2020-10-04] MEDS: LISINOPRIL 10 MG TABLET PO SCH (10:01)
[2020-10-04] MEDS: FLUTICASONE PROP 0.05% 16 GM NASAL SPRAY NS SCH ×2 (10:01→21:15)
[2020-10-04] MEDS: ASPIRIN 81 MG CHEWABLE TABLETS PO SCH (10:01)
[2020-10-04] MEDS: hydrOXYzine PAMOATE 25 MG CAPSULE (FP) PO PRN (10:01)
[2020-10-04] MEDS: MELATONIN 5 MG TABLETS PO SCH (21:15)
[2020-10-04] MEDS: THIAMINE HCL 100 MG TABLET (FP) PO SCH (21:15)
[2020-10-04] MEDS: QUEtiapine FUMARATE 100 MG TABLET (FP) PO SCH (21:16)
[2020-10-05] MEDS: TAMSULOSIN HCL 0.4 MG CAP PO SCH (07:44)
[2020-10-05] MEDS: PANTOPRAZOLE 40 MG TABLET PO SCH (10:04)
[2020-10-05] MEDS: LISINOPRIL 10 MG TABLET PO SCH (10:04)
[2020-10-05] MEDS: ASPIRIN 81 MG CHEWABLE TABLETS PO SCH (10:04)
[2020-10-05] MEDS: PRENATAL VITAMINS W/ FOLIC ACID TABLET (FP) PO SCH (10:04)
[2020-10-05] MEDS: glipiZIDE-XL 5 MG TAB.ER.24 PO SCH (10:48)
[2020-10-05] MEDS: FLUTICASONE PROP 0.05% 16 GM NASAL SPRAY NS SCH ×2 (10:48→21:12)
[2020-10-05] MEDS: THIAMINE HCL 100 MG TABLET (FP) PO SCH (21:12)
[2020-10-05] MEDS: MELATONIN 5 MG TABLETS PO SCH (21:12)
[2020-10-05] MEDS: QUEtiapine FUMARATE 100 MG TABLET (FP) PO SCH (21:12)
[2020-10-06] MEDS: glipiZIDE-XL 5 MG TAB.ER.24 PO SCH (06:53)
[2020-10-06] MEDS: TAMSULOSIN HCL 0.4 MG CAP PO SCH (07:36)
[2020-10-06] MEDS: ASPIRIN 81 MG CHEWABLE TABLETS PO SCH (10:18)
[2020-10-06] MEDS: PANTOPRAZOLE 40 MG TABLET PO SCH (10:18)
[2020-10-06] MEDS: LISINOPRIL 10 MG TABLET PO SCH (10:18)
[2020-10-06] MEDS: PRENATAL VITAMINS W/ FOLIC ACID TABLET (FP) PO SCH (10:18)
[2020-10-06] MEDS: FLUTICASONE PROP 0.05% 16 GM NASAL SPRAY NS SCH ×2 (10:19→21:23)
[2020-10-06] MEDS: QUEtiapine FUMARATE 100 MG TABLET (FP) PO SCH ×2 (15:42→21:22)
[2020-10-06] MEDS: THIAMINE HCL 100 MG TABLET (FP) PO SCH (21:22)
[2020-10-06] MEDS: MELATONIN 5 MG TABLETS PO SCH (21:22)
[2020-10-07] MEDS: glipiZIDE-XL 5 MG TAB.ER.24 PO SCH (06:46)
[2020-10-07 07:17] VITALS: TEMP 96.8
[2020-10-07] MEDS: LISINOPRIL 10 MG TABLET PO SCH (10:35)
[2020-10-07] MEDS: PRENATAL VITAMINS W/ FOLIC ACID TABLET (FP) PO SCH (10:35)
[2020-10-07] MEDS: PANTOPRAZOLE 40 MG TABLET PO SCH (10:35)
[2020-10-07] MEDS: ASPIRIN 81 MG CHEWABLE TABLETS PO SCH (10:35)
[2020-10-07] MEDS: FLUTICASONE PROP 0.05% 16 GM NASAL SPRAY NS SCH (10:35)
[2020-10-07] MEDS: hydrOXYzine PAMOATE 25 MG CAPSULE (FP) PO PRN (10:36)
[2020-10-07] MEDS: TAMSULOSIN HCL 0.4 MG CAP PO SCH (11:28)
[2020-10-07 12:29] VITALS: BP 136/91; PULSE 115
[2020-10-07] MEDS ORDERED: LIDOCAINE 5% TOPICAL PATCH TP SCH (13:30)
[2020-10-07] MEDS ORDERED: LIDOCAINE PATCH REMOVAL MC SCH (22:00)
== END 2020-10-07 13:23 | disposition short-term general hospital (02) | DRG 895 ==
LOC: YASAS 10:46 → Y3W 17:37
PROVIDERS: ADMIT Allergy & Immunology; ATTEND Allergy & Immunology
PROC: HZ42ZZZ Group Counseling for Substance Abuse Treatment, Cognitive-Behavioral (ICD-10-PCS; principal; 2020-10-01)
DX: F10.20 Alcohol dependence, uncomplicated (principal); F14.20 Cocaine dependence, uncomplicated; F33.3 Major depressive disorder, recurrent, severe with psychotic symptoms; F12.20 Cannabis dependence, uncomplicated; F17.210 Nicotine dependence, cigarettes, uncomplicated; F20.9 Schizophrenia, unspecified; F19.24 Other psychoactive substance dependence with psychoactive substance-induced mood disorder; I10 Essential (primary) hypertension; E11.9 Type 2 diabetes mellitus without complications; E78.00 Pure hypercholesterolemia, unspecified; J45.909 Unspecified asthma, uncomplicated; N40.0 Benign prostatic hyperplasia without lower urinary tract symptoms; Z98.890 Other specified postprocedural states; Z91.010 Allergy to peanuts; Z91.012 Allergy to eggs; Z79.84 Long term (current) use of oral hypoglycemic drugs
CPT/HCPCS: 36415; 71046-TC-FY; 80053; 81003; 82962; 85027; 86780; 93005; 93010; C9803; U0003; U0005

== ENCOUNTER 2020-12-29 13:10 | Inpatient (IN) | payer OTHER ==
[2020-12-29 14:14] VITALS: BMI 25.4
[2020-12-29] MEDS ORDERED: MAGNESIUM HYDROX 2400MG/30ML ORAL SUSPENSION 30 ML CUP PO PRN (19:04)
[2020-12-29] MEDS ORDERED: METHOCARBAMOL 500 MG TABLET PO PRN (19:04)
[2020-12-29] MEDS ORDERED: BISMUTH SUBSALICYLATE 524 MG/30 ML PO PRN (19:04)
[2020-12-29] MEDS ORDERED: LORazepam 1 MG TABLET PO PRN (19:04)
[2020-12-29] MEDS ORDERED: MAGNESIUM CITRATE 300 ML BOTTLE PO PRN (19:04)
[2020-12-29] MEDS ORDERED: MENTHOL/PHENOL 1 EACH UD MM PRN (19:04)
[2020-12-29] MEDS ORDERED: IBUPROFEN 400 MG TABLET (FP) PO PRN (19:04)
[2020-12-29] MEDS ORDERED: MAG HYDROX/AL HYDROX/SIMETH 30 ML UNIT-DOSE CUP PO PRN (19:04)
[2020-12-29] MEDS ORDERED: NICOTINE 10 MG CARTRIDGE (INHALER) IH PRN (19:04)
[2020-12-29] MEDS ORDERED: ACETAMINOPHEN 325 MG TABLET (FP) PO PRN ×2 (19:04)
[2020-12-29] MEDS ORDERED: ONDANSETRON *ODT* 4 MG TABLET SL PRN (19:04)
[2020-12-29] MEDS ORDERED: ALBUTEROL SO4 HFA INHALER IH PRN (19:07)
[2020-12-29] MEDS: LISINOPRIL 10 MG TABLET PO SCH (22:51)
[2020-12-29] MEDS: QUEtiapine FUMARATE 100 MG TABLET (FP) PO SCH (22:55)
[2020-12-29] MEDS: THIAMINE HCL 100 MG TABLET (FP) PO SCH (22:55)
[2020-12-29] MEDS: TAMSULOSIN HCL 0.4 MG CAP PO SCH (22:55)
[2020-12-29] MEDS: LORazepam 2 MG TABLET PO SCH (22:55)
[2020-12-29] MEDS: MELATONIN 5 MG TABLETS PO SCH (22:56)
[2020-12-29] MEDS: PRENATAL VITAMINS W/ FOLIC ACID TABLET (FP) PO SCH (22:56)
[2020-12-29] MEDS: hydrOXYzine PAMOATE 25 MG CAPSULE (FP) PO SCH (22:57)
[2020-12-29] MEDS: propRANOLol HCL 10 MG TABLET PO SCH (23:55)
[2020-12-29] MEDS: LIDOCAINE HCL 5% TOP OINTMENT 50 GM TUBE TP SCH (23:56)
[2020-12-30] MEDS: LORazepam 2 MG TABLET PO SCH ×4 (07:02→22:09)
[2020-12-30] MEDS: hydrOXYzine PAMOATE 25 MG CAPSULE (FP) PO SCH (07:02)
[2020-12-30] MEDS ORDERED: hydrOXYzine PAMOATE 25 MG CAPSULE (FP) PO PRN (07:21)
[2020-12-30] MEDS: glipiZIDE-XL 5 MG TAB.ER.24 PO SCH (08:01)
[2020-12-30] MEDS: PRENATAL VITAMINS W/ FOLIC ACID TABLET (FP) PO SCH (10:27)
[2020-12-30] MEDS: ASPIRIN 81 MG CHEWABLE TABLETS PO SCH (10:28)
[2020-12-30] MEDS: PANTOPRAZOLE 40 MG TABLET PO SCH (10:28)
[2020-12-30] MEDS: LISINOPRIL 10 MG TABLET PO SCH ×2 (10:28→22:08)
[2020-12-30] MEDS: FINASTERIDE 5 MG TABLET (FP) PO SCH (10:28)
[2020-12-30] MEDS: propRANOLol HCL 10 MG TABLET PO SCH ×2 (10:28→22:09)
[2020-12-30] MEDS: ATORVASTATIN CA 20 MG TABLET (FP) PO SCH (10:28)
[2020-12-30] MEDS: LIDOCAINE HCL 5% TOP OINTMENT 50 GM TUBE TP SCH ×2 (10:29→22:10)
[2020-12-30] MEDS: FLUTICASONE PROP 0.05% 16 GM NASAL SPRAY NS SCH (11:13)
[2020-12-30 11:45] LABS: HEMATOCRIT 32.5 % (35.4-49); HEMOGLOBIN 11.6 GM/dL (11.7-16.9); MCHC 35.8 g/dl (32.0-35.9); MEAN CELL VOLUME 86.7 fl (80-96); MEAN PLT VOLUME 8.5 fl (7.5-11.1); PLATELET COUNT 223 10^3/uL (134-434); RBC 3.74 M/mm3 (4.00-5.60); RDW 14.2 % (11.9-15.9); WHITE BLOOD COUNT 5.5 K/mm3 (4.0-10.0)
[2020-12-30 11:56] LABS: BLOOD UREA NITROGEN 15.6 mg/dL (7-18)
[2020-12-30 11:57] LABS: ALBUMIN 2.8 g/dl (3.4-5.0)
[2020-12-30 12:00] LABS: CREATININE 1.2 mg/dL (0.55-1.3)
[2020-12-30 12:01] LABS: BILIRUBIN,TOTAL 0.2 mg/dL (0.2-1); TOT PROT 6.3 g/dl (6.4-8.2)
[2020-12-30] MEDS: THIAMINE HCL 100 MG TABLET (FP) PO SCH (22:08)
[2020-12-30] MEDS: TAMSULOSIN HCL 0.4 MG CAP PO SCH (22:08)
[2020-12-30] MEDS: QUEtiapine FUMARATE 100 MG TABLET (FP) PO SCH (22:08)
[2020-12-30] MEDS: MELATONIN 5 MG TABLETS PO SCH (22:09)
[2020-12-31] MEDS: LORazepam 1 MG TABLET PO SCH ×4 (06:01→22:22)
[2020-12-31] MEDS: glipiZIDE-XL 5 MG TAB.ER.24 PO SCH (06:03)
[2020-12-31] MEDS: PRENATAL VITAMINS W/ FOLIC ACID TABLET (FP) PO SCH (10:22)
[2020-12-31] MEDS: LISINOPRIL 10 MG TABLET PO SCH ×2 (10:22→22:21)
[2020-12-31] MEDS: ASPIRIN 81 MG CHEWABLE TABLETS PO SCH (10:22)
[2020-12-31] MEDS: FINASTERIDE 5 MG TABLET (FP) PO SCH (10:22)
[2020-12-31] MEDS: FLUTICASONE PROP 0.05% 16 GM NASAL SPRAY NS SCH (10:22)
[2020-12-31] MEDS: propRANOLol HCL 10 MG TABLET PO SCH ×2 (10:22→22:22)
[2020-12-31] MEDS: PANTOPRAZOLE 40 MG TABLET PO SCH (10:22)
[2020-12-31] MEDS: ATORVASTATIN CA 20 MG TABLET (FP) PO SCH (10:23)
[2020-12-31] MEDS: LIDOCAINE HCL 5% TOP OINTMENT 50 GM TUBE TP SCH ×2 (10:27→22:22)
[2020-12-31] MEDS: TAMSULOSIN HCL 0.4 MG CAP PO SCH (22:21)
[2020-12-31] MEDS: QUEtiapine FUMARATE 100 MG TABLET (FP) PO SCH (22:21)
[2020-12-31] MEDS: THIAMINE HCL 100 MG TABLET (FP) PO SCH (22:21)
[2020-12-31] MEDS: MELATONIN 5 MG TABLETS PO SCH (22:22)
[2021-01-01] MEDS ORDERED: LORazepam 0.5 MG TABLET PO PRN
[2021-01-01] MEDS: LORazepam 0.5 MG TABLET PO SCH ×4 (05:27→22:20)
[2021-01-01] MEDS: glipiZIDE-XL 5 MG TAB.ER.24 PO SCH (06:04)
[2021-01-01] MEDS: propRANOLol HCL 10 MG TABLET PO SCH ×2 (10:33→22:19)
[2021-01-01] MEDS: ATORVASTATIN CA 20 MG TABLET (FP) PO SCH (10:33)
[2021-01-01] MEDS: PANTOPRAZOLE 40 MG TABLET PO SCH (10:33)
[2021-01-01] MEDS: ASPIRIN 81 MG CHEWABLE TABLETS PO SCH (10:33)
[2021-01-01] MEDS: FLUTICASONE PROP 0.05% 16 GM NASAL SPRAY NS SCH (10:33)
[2021-01-01] MEDS: PRENATAL VITAMINS W/ FOLIC ACID TABLET (FP) PO SCH (10:33)
[2021-01-01] MEDS: LISINOPRIL 10 MG TABLET PO SCH ×2 (10:33→22:19)
[2021-01-01] MEDS: FINASTERIDE 5 MG TABLET (FP) PO SCH (10:33)
[2021-01-01] MEDS: LIDOCAINE HCL 5% TOP OINTMENT 50 GM TUBE TP SCH ×2 (10:36→23:35)
[2021-01-01] MEDS: TAMSULOSIN HCL 0.4 MG CAP PO SCH (22:19)
[2021-01-01] MEDS: QUEtiapine FUMARATE 100 MG TABLET (FP) PO SCH (22:19)
[2021-01-01] MEDS: THIAMINE HCL 100 MG TABLET (FP) PO SCH (22:19)
[2021-01-01] MEDS: MELATONIN 5 MG TABLETS PO SCH (22:23)
[2021-01-02] MEDS ORDERED: LORazepam 0.5 MG TABLET PO ONE (05:00)
[2021-01-02] MEDS: glipiZIDE-XL 5 MG TAB.ER.24 PO SCH (06:06)
[2021-01-02] MEDS: FINASTERIDE 5 MG TABLET (FP) PO SCH (10:40)
[2021-01-02] MEDS: PANTOPRAZOLE 40 MG TABLET PO SCH (10:40)
[2021-01-02] MEDS: LISINOPRIL 10 MG TABLET PO SCH (10:40)
[2021-01-02] MEDS: ASPIRIN 81 MG CHEWABLE TABLETS PO SCH (10:40)
[2021-01-02] MEDS: ATORVASTATIN CA 20 MG TABLET (FP) PO SCH (10:40)
[2021-01-02] MEDS: LIDOCAINE HCL 5% TOP OINTMENT 50 GM TUBE TP SCH (10:40)
[2021-01-02] MEDS: FLUTICASONE PROP 0.05% 16 GM NASAL SPRAY NS SCH (10:40)
[2021-01-02] MEDS: propRANOLol HCL 10 MG TABLET PO SCH (10:40)
[2021-01-02] MEDS: PRENATAL VITAMINS W/ FOLIC ACID TABLET (FP) PO SCH (10:40)
[2021-01-02 13:12] VITALS: BP 132/93; PULSE 97; TEMP 97.3
== END 2021-01-02 15:02 | disposition other institution (70) | DRG 897 ==
LOC: YASAS 13:10 → UNDOADMIN 19:14 → Y3N 19:14
PROVIDERS: ADMIT Allergy & Immunology; ATTEND Allergy & Immunology
PROC: HZ2ZZZZ Detoxification Services for Substance Abuse Treatment (ICD-10-PCS; principal; 2020-12-29)
DX: F10.230 Alcohol dependence with withdrawal, uncomplicated (principal); F14.20 Cocaine dependence, uncomplicated; F33.3 Major depressive disorder, recurrent, severe with psychotic symptoms; F12.20 Cannabis dependence, uncomplicated; F17.210 Nicotine dependence, cigarettes, uncomplicated; F20.9 Schizophrenia, unspecified; F19.24 Other psychoactive substance dependence with psychoactive substance-induced mood disorder; F34.1 Dysthymic disorder; I10 Essential (primary) hypertension; J45.909 Unspecified asthma, uncomplicated; N40.0 Benign prostatic hyperplasia without lower urinary tract symptoms; E78.5 Hyperlipidemia, unspecified; E11.65 Type 2 diabetes mellitus with hyperglycemia; R00.0 Tachycardia, unspecified; Z91.010 Allergy to peanuts; Z91.012 Allergy to eggs; Z79.84 Long term (current) use of oral hypoglycemic drugs; Z59.0 Homelessness
CPT/HCPCS: 36415; 80053; 82962; 85027; 86780; 93005; 93010; C9803; U0003; U0005

== ENCOUNTER 2021-01-02 15:27 | Inpatient (IN) | payer OTHER ==
[2021-01-02] MEDS ORDERED: MAGNESIUM HYDROX 2400MG/30ML ORAL SUSPENSION 30 ML CUP PO PRN (16:01)
[2021-01-02] MEDS ORDERED: MAGNESIUM CITRATE 300 ML BOTTLE PO PRN (16:01)
[2021-01-02] MEDS ORDERED: MENTHOL/PHENOL 1 EACH UD MM PRN (16:01)
[2021-01-02] MEDS ORDERED: P-EPHED 60MG/TRIPROLIDI 2.5MG TABLET PO PRN (16:01)
[2021-01-02] MEDS ORDERED: hydrOXYzine PAMOATE 25 MG CAPSULE (FP) PO PRN (16:01)
[2021-01-02] MEDS ORDERED: ACETAMINOPHEN 325 MG TABLET (FP) PO PRN (16:01)
[2021-01-02] MEDS ORDERED: guaiFENesin 200 MG/10 ML 10 ML UNIT-DOSE CUPS PO PRN (16:01)
[2021-01-02] MEDS ORDERED: LOPERAMIDE HCL 2 MG CAPSULE PO PRN (16:01)
[2021-01-02] MEDS ORDERED: ALBUTEROL SO4 HFA INHALER IH PRN (16:02)
[2021-01-02] MEDS: ATORVASTATIN CA 20 MG TABLET (FP) PO SCH (22:05)
[2021-01-02] MEDS: propRANOLol HCL 10 MG TABLET PO SCH (22:05)
[2021-01-02] MEDS: LISINOPRIL 20 MG TABLET PO SCH (22:05)
[2021-01-02] MEDS: MELATONIN 5 MG TABLETS PO SCH (22:05)
[2021-01-02] MEDS: THIAMINE HCL 100 MG TABLET (FP) PO SCH (22:05)
[2021-01-02] MEDS: LIDOCAINE HCL 5% TOP OINTMENT 50 GM TUBE TP SCH (22:11)
[2021-01-03] MEDS ORDERED: PT OWN MED DRAWER 7, Y5N ONE ×5 (03:06→21:21)
[2021-01-03] MEDS: glipiZIDE-XL 5 MG TAB.ER.24 PO SCH (06:24)
[2021-01-03] MEDS: FINASTERIDE 5 MG TABLET (FP) PO SCH (09:47)
[2021-01-03] MEDS: LISINOPRIL 20 MG TABLET PO SCH ×2 (09:47→21:19)
[2021-01-03] MEDS: PRENATAL VITAMINS W/ FOLIC ACID TABLET (FP) PO SCH (09:47)
[2021-01-03] MEDS: propRANOLol HCL 10 MG TABLET PO SCH ×2 (09:47→21:19)
[2021-01-03] MEDS: ASPIRIN 81 MG CHEWABLE TABLETS PO SCH (09:47)
[2021-01-03] MEDS: LIDOCAINE HCL 5% TOP OINTMENT 50 GM TUBE TP SCH ×2 (09:49→21:20)
[2021-01-03] MEDS: FLUTICASONE PROP 0.05% 16 GM NASAL SPRAY NS SCH (09:51)
[2021-01-03] MEDS ORDERED: TAMSULOSIN HCL 0.4 MG CAP PO SCH (10:00)
[2021-01-03 17:22] LABS: PH,URINE 7.5 (5.0-8.0); URINE APPEARANCE CLEAR; URINE BILIRUBIN NEGATIVE (NEGATIVE); URINE COLOR YELLOW; URINE GLUCOSE (UA) 2+ (NEGATIVE); URINE KETONE NEGATIVE (NEGATIVE); URINE LEUK ESTERASE NEGATIVE (NEGATIVE); URINE NITRITE NEGATIVE (NEGATIVE); URINE PROTEIN NEGATIVE (NEGATIVE); URINE UROBILINOGEN 0.2 mg/dL (0.2-1.0)
[2021-01-03] MEDS: MELATONIN 5 MG TABLETS PO SCH (21:19)
[2021-01-03] MEDS: ATORVASTATIN CA 20 MG TABLET (FP) PO SCH (21:19)
[2021-01-03] MEDS: THIAMINE HCL 100 MG TABLET (FP) PO SCH (21:19)
[2021-01-04] MEDS: glipiZIDE-XL 5 MG TAB.ER.24 PO SCH (06:19)
[2021-01-04] MEDS ORDERED: PT OWN MED DRAWER 7, Y5N ONE ×3 (09:23→18:57)
[2021-01-04] MEDS: propRANOLol HCL 10 MG TABLET PO SCH ×2 (10:30→21:41)
[2021-01-04] MEDS: PRENATAL VITAMINS W/ FOLIC ACID TABLET (FP) PO SCH (10:30)
[2021-01-04] MEDS: ASPIRIN 81 MG CHEWABLE TABLETS PO SCH (10:30)
[2021-01-04] MEDS: LISINOPRIL 20 MG TABLET PO SCH ×2 (10:30→21:41)
[2021-01-04] MEDS: FLUTICASONE PROP 0.05% 16 GM NASAL SPRAY NS SCH (10:30)
[2021-01-04] MEDS ORDERED: fluPHENAZine DECANOATE 125 MG/5ML VIAL IM ONE (10:30)
[2021-01-04] MEDS: LIDOCAINE HCL 5% TOP OINTMENT 50 GM TUBE TP SCH ×2 (10:31→21:43)
[2021-01-04] MEDS: FINASTERIDE 5 MG TABLET (FP) PO SCH (11:18)
[2021-01-04] MEDS: THIAMINE HCL 100 MG TABLET (FP) PO SCH (21:42)
[2021-01-04] MEDS: ATORVASTATIN CA 20 MG TABLET (FP) PO SCH (21:42)
[2021-01-04] MEDS ORDERED: QUEtiapine FUMARATE 300 MG TABLET PO SCH (22:00)
[2021-01-04] MEDS: TAMSULOSIN HCL 0.4 MG CAP PO SCH (22:29)
[2021-01-05] MEDS: glipiZIDE-XL 5 MG TAB.ER.24 PO SCH (06:18)
[2021-01-05] MEDS: PRENATAL VITAMINS W/ FOLIC ACID TABLET (FP) PO SCH (09:52)
[2021-01-05] MEDS: FINASTERIDE 5 MG TABLET (FP) PO SCH (09:52)
[2021-01-05] MEDS: ASPIRIN 81 MG CHEWABLE TABLETS PO SCH (09:52)
[2021-01-05] MEDS: LISINOPRIL 20 MG TABLET PO SCH ×2 (09:52→21:13)
[2021-01-05] MEDS: propRANOLol HCL 10 MG TABLET PO SCH ×2 (09:52→21:14)
[2021-01-05] MEDS: FLUTICASONE PROP 0.05% 16 GM NASAL SPRAY NS SCH (09:52)
[2021-01-05] MEDS: LIDOCAINE HCL 5% TOP OINTMENT 50 GM TUBE TP SCH ×2 (09:53→21:15)
[2021-01-05] MEDS: IBUPROFEN 400 MG TABLET (FP) PO PRN (09:53)
[2021-01-05] MEDS: THIAMINE HCL 100 MG TABLET (FP) PO SCH (21:13)
[2021-01-05] MEDS: TAMSULOSIN HCL 0.4 MG CAP PO SCH (21:14)
[2021-01-05] MEDS: ATORVASTATIN CA 20 MG TABLET (FP) PO SCH (21:14)
[2021-01-05] MEDS ORDERED: QUEtiapine FUMARATE 100 MG TABLET (FP) PO SCH (22:00)
[2021-01-06] MEDS: glipiZIDE-XL 5 MG TAB.ER.24 PO SCH (06:26)
[2021-01-06] MEDS: PRENATAL VITAMINS W/ FOLIC ACID TABLET (FP) PO SCH (10:01)
[2021-01-06] MEDS: LIDOCAINE HCL 5% TOP OINTMENT 50 GM TUBE TP SCH ×2 (10:01→21:17)
[2021-01-06] MEDS: FLUTICASONE PROP 0.05% 16 GM NASAL SPRAY NS SCH (10:01)
[2021-01-06] MEDS: propRANOLol HCL 10 MG TABLET PO SCH ×2 (10:01→21:16)
[2021-01-06] MEDS: FINASTERIDE 5 MG TABLET (FP) PO SCH (10:01)
[2021-01-06] MEDS: LISINOPRIL 20 MG TABLET PO SCH ×2 (10:01→21:15)
[2021-01-06] MEDS: ASPIRIN 81 MG CHEWABLE TABLETS PO SCH (10:01)
[2021-01-06] MEDS: PANTOPRAZOLE 20 MG TABLET PO SCH (14:18)
[2021-01-06] MEDS: ATORVASTATIN CA 20 MG TABLET (FP) PO SCH (21:16)
[2021-01-06] MEDS: TAMSULOSIN HCL 0.4 MG CAP PO SCH (21:16)
[2021-01-06] MEDS: THIAMINE HCL 100 MG TABLET (FP) PO SCH (21:16)
[2021-01-06] MEDS: QUEtiapine FUMARATE 200 MG TABLET PO SCH (21:17)
[2021-01-06] MEDS: MAG HYDROX/AL HYDROX/SIMETH 30 ML UNIT-DOSE CUP PO PRN (22:27)
[2021-01-07] MEDS: glipiZIDE-XL 5 MG TAB.ER.24 PO SCH (05:59)
[2021-01-07] MEDS: PRENATAL VITAMINS W/ FOLIC ACID TABLET (FP) PO SCH (10:17)
[2021-01-07] MEDS: FINASTERIDE 5 MG TABLET (FP) PO SCH (10:18)
[2021-01-07] MEDS: ASPIRIN 81 MG CHEWABLE TABLETS PO SCH (10:18)
[2021-01-07] MEDS: LISINOPRIL 20 MG TABLET PO SCH ×2 (10:18→21:37)
[2021-01-07] MEDS: PANTOPRAZOLE 20 MG TABLET PO SCH (10:18)
[2021-01-07] MEDS: propRANOLol HCL 10 MG TABLET PO SCH ×2 (10:18→21:36)
[2021-01-07] MEDS: FLUTICASONE PROP 0.05% 16 GM NASAL SPRAY NS SCH (10:19)
[2021-01-07] MEDS: LIDOCAINE HCL 5% TOP OINTMENT 50 GM TUBE TP SCH ×2 (10:25→21:37)
[2021-01-07] MEDS: QUEtiapine FUMARATE 200 MG TABLET PO SCH (21:36)
[2021-01-07] MEDS: ATORVASTATIN CA 20 MG TABLET (FP) PO SCH (21:36)
[2021-01-07] MEDS: TAMSULOSIN HCL 0.4 MG CAP PO SCH (21:36)
[2021-01-07] MEDS: THIAMINE HCL 100 MG TABLET (FP) PO SCH (21:37)
[2021-01-08] MEDS: glipiZIDE-XL 5 MG TAB.ER.24 PO SCH (06:29)
[2021-01-08] MEDS: propRANOLol HCL 10 MG TABLET PO SCH ×2 (09:34→21:11)
[2021-01-08] MEDS: PANTOPRAZOLE 20 MG TABLET PO SCH (09:35)
[2021-01-08] MEDS: LISINOPRIL 20 MG TABLET PO SCH ×2 (09:35→21:11)
[2021-01-08] MEDS: FINASTERIDE 5 MG TABLET (FP) PO SCH (09:35)
[2021-01-08] MEDS: PRENATAL VITAMINS W/ FOLIC ACID TABLET (FP) PO SCH (09:35)
[2021-01-08] MEDS: ASPIRIN 81 MG CHEWABLE TABLETS PO SCH (09:35)
[2021-01-08] MEDS: IBUPROFEN 400 MG TABLET (FP) PO PRN (09:36)
[2021-01-08] MEDS: FLUTICASONE PROP 0.05% 16 GM NASAL SPRAY NS SCH (09:38)
[2021-01-08] MEDS: LIDOCAINE HCL 5% TOP OINTMENT 50 GM TUBE TP SCH ×2 (10:38→21:13)
[2021-01-08] MEDS: NICOTINE 10 MG CARTRIDGE (INHALER) IH PRN (20:06)
[2021-01-08] MEDS: TAMSULOSIN HCL 0.4 MG CAP PO SCH (21:10)
[2021-01-08] MEDS: THIAMINE HCL 100 MG TABLET (FP) PO SCH (21:10)
[2021-01-08] MEDS: QUEtiapine FUMARATE 200 MG TABLET PO SCH (21:11)
[2021-01-08] MEDS: ATORVASTATIN CA 20 MG TABLET (FP) PO SCH (21:11)
[2021-01-08] MEDS ORDERED: PT OWN MED DRAWER 7, Y5N ONE (21:13)
[2021-01-09] MEDS: glipiZIDE-XL 5 MG TAB.ER.24 PO SCH (06:11)
[2021-01-09] MEDS: FINASTERIDE 5 MG TABLET (FP) PO SCH (09:59)
[2021-01-09] MEDS: PANTOPRAZOLE 20 MG TABLET PO SCH (09:59)
[2021-01-09] MEDS: LISINOPRIL 20 MG TABLET PO SCH ×2 (09:59→21:29)
[2021-01-09] MEDS: PRENATAL VITAMINS W/ FOLIC ACID TABLET (FP) PO SCH (09:59)
[2021-01-09] MEDS: ASPIRIN 81 MG CHEWABLE TABLETS PO SCH (09:59)
[2021-01-09] MEDS: LIDOCAINE HCL 5% TOP OINTMENT 50 GM TUBE TP SCH ×2 (10:00→21:50)
[2021-01-09] MEDS: FLUTICASONE PROP 0.05% 16 GM NASAL SPRAY NS SCH (10:00)
[2021-01-09] MEDS: propRANOLol HCL 10 MG TABLET PO SCH ×2 (10:00→21:29)
[2021-01-09] MEDS ORDERED: PT OWN MED DRAWER 7, Y5N ONE (18:53)
[2021-01-09] MEDS: ATORVASTATIN CA 20 MG TABLET (FP) PO SCH (21:29)
[2021-01-09] MEDS: QUEtiapine FUMARATE 200 MG TABLET PO SCH (21:29)
[2021-01-09] MEDS: THIAMINE HCL 100 MG TABLET (FP) PO SCH (21:29)
[2021-01-09] MEDS: TAMSULOSIN HCL 0.4 MG CAP PO SCH (21:29)
[2021-01-09] MEDS: IBUPROFEN 400 MG TABLET (FP) PO PRN (21:30)
[2021-01-10] MEDS: glipiZIDE-XL 5 MG TAB.ER.24 PO SCH (06:25)
[2021-01-10] MEDS: PRENATAL VITAMINS W/ FOLIC ACID TABLET (FP) PO SCH (09:33)
[2021-01-10] MEDS: FLUTICASONE PROP 0.05% 16 GM NASAL SPRAY NS SCH (09:34)
[2021-01-10] MEDS: LISINOPRIL 20 MG TABLET PO SCH ×2 (09:34→21:08)
[2021-01-10] MEDS: LIDOCAINE HCL 5% TOP OINTMENT 50 GM TUBE TP SCH ×2 (09:34→21:10)
[2021-01-10] MEDS: ASPIRIN 81 MG CHEWABLE TABLETS PO SCH (09:34)
[2021-01-10] MEDS: PANTOPRAZOLE 20 MG TABLET PO SCH (09:34)
[2021-01-10] MEDS: propRANOLol HCL 10 MG TABLET PO SCH ×2 (09:34→21:08)
[2021-01-10] MEDS: FINASTERIDE 5 MG TABLET (FP) PO SCH (09:34)
[2021-01-10] MEDS: IBUPROFEN 400 MG TABLET (FP) PO PRN ×2 (09:35→21:09)
[2021-01-10] MEDS: QUEtiapine FUMARATE 200 MG TABLET PO SCH (21:08)
[2021-01-10] MEDS: THIAMINE HCL 100 MG TABLET (FP) PO SCH (21:08)
[2021-01-10] MEDS: TAMSULOSIN HCL 0.4 MG CAP PO SCH (21:08)
[2021-01-10] MEDS: ATORVASTATIN CA 20 MG TABLET (FP) PO SCH (21:08)
[2021-01-11] MEDS: glipiZIDE-XL 5 MG TAB.ER.24 PO SCH (06:26)
[2021-01-11] MEDS: PRENATAL VITAMINS W/ FOLIC ACID TABLET (FP) PO SCH (10:49)
[2021-01-11] MEDS: LISINOPRIL 20 MG TABLET PO SCH ×2 (10:49→21:41)
[2021-01-11] MEDS: FINASTERIDE 5 MG TABLET (FP) PO SCH (10:49)
[2021-01-11] MEDS: propRANOLol HCL 10 MG TABLET PO SCH ×2 (10:49→21:41)
[2021-01-11] MEDS: PANTOPRAZOLE 20 MG TABLET PO SCH (10:49)
[2021-01-11] MEDS: ASPIRIN 81 MG CHEWABLE TABLETS PO SCH (10:49)
[2021-01-11] MEDS: FLUTICASONE PROP 0.05% 16 GM NASAL SPRAY NS SCH (10:49)
[2021-01-11] MEDS: LIDOCAINE HCL 5% TOP OINTMENT 50 GM TUBE TP SCH ×2 (11:00→21:42)
[2021-01-11] MEDS: NICOTINE 10 MG CARTRIDGE (INHALER) IH PRN (18:53)
[2021-01-11] MEDS: TAMSULOSIN HCL 0.4 MG CAP PO SCH (21:41)
[2021-01-11] MEDS: QUEtiapine FUMARATE 200 MG TABLET PO SCH (21:41)
[2021-01-11] MEDS: THIAMINE HCL 100 MG TABLET (FP) PO SCH (21:41)
[2021-01-11] MEDS: ATORVASTATIN CA 20 MG TABLET (FP) PO SCH (21:41)
[2021-01-12] MEDS: glipiZIDE-XL 5 MG TAB.ER.24 PO SCH (06:14)
[2021-01-12] MEDS: ASPIRIN 81 MG CHEWABLE TABLETS PO SCH (10:27)
[2021-01-12] MEDS: PANTOPRAZOLE 20 MG TABLET PO SCH (10:27)
[2021-01-12] MEDS: PRENATAL VITAMINS W/ FOLIC ACID TABLET (FP) PO SCH (10:27)
[2021-01-12] MEDS: LISINOPRIL 20 MG TABLET PO SCH ×2 (10:27→21:25)
[2021-01-12] MEDS: propRANOLol HCL 10 MG TABLET PO SCH ×2 (10:27→21:25)
[2021-01-12] MEDS: IBUPROFEN 400 MG TABLET (FP) PO PRN ×2 (10:27→21:25)
[2021-01-12] MEDS: LIDOCAINE HCL 5% TOP OINTMENT 50 GM TUBE TP SCH ×2 (10:27→22:47)
[2021-01-12] MEDS: FINASTERIDE 5 MG TABLET (FP) PO SCH (10:27)
[2021-01-12] MEDS: FLUTICASONE PROP 0.05% 16 GM NASAL SPRAY NS SCH (10:47)
[2021-01-12] MEDS ORDERED: PT OWN MED DRAWER 7, Y5N ONE (19:39)
[2021-01-12] MEDS: ATORVASTATIN CA 20 MG TABLET (FP) PO SCH (21:25)
[2021-01-12] MEDS: TAMSULOSIN HCL 0.4 MG CAP PO SCH (21:25)
[2021-01-12] MEDS: THIAMINE HCL 100 MG TABLET (FP) PO SCH (21:25)
[2021-01-12] MEDS: QUEtiapine FUMARATE 200 MG TABLET PO SCH (21:25)
[2021-01-13] MEDS: glipiZIDE-XL 5 MG TAB.ER.24 PO SCH (06:00)
[2021-01-13] MEDS ORDERED: PT OWN MED DRAWER 7, Y5N ONE ×2 (09:08→18:47)
[2021-01-13] MEDS: PRENATAL VITAMINS W/ FOLIC ACID TABLET (FP) PO SCH (09:56)
[2021-01-13] MEDS: propRANOLol HCL 10 MG TABLET PO SCH ×2 (09:56→21:41)
[2021-01-13] MEDS: PANTOPRAZOLE 20 MG TABLET PO SCH (09:56)
[2021-01-13] MEDS: LISINOPRIL 20 MG TABLET PO SCH ×2 (09:57→21:40)
[2021-01-13] MEDS: LIDOCAINE HCL 5% TOP OINTMENT 50 GM TUBE TP SCH ×2 (09:57→21:59)
[2021-01-13] MEDS: FLUTICASONE PROP 0.05% 16 GM NASAL SPRAY NS SCH (09:57)
[2021-01-13] MEDS: ASPIRIN 81 MG CHEWABLE TABLETS PO SCH (09:57)
[2021-01-13] MEDS: FINASTERIDE 5 MG TABLET (FP) PO SCH (09:57)
[2021-01-13] MEDS: ATORVASTATIN CA 20 MG TABLET (FP) PO SCH (21:40)
[2021-01-13] MEDS: TAMSULOSIN HCL 0.4 MG CAP PO SCH (21:40)
[2021-01-13] MEDS: QUEtiapine FUMARATE 200 MG TABLET PO SCH (21:40)
[2021-01-13] MEDS: THIAMINE HCL 100 MG TABLET (FP) PO SCH (21:41)
[2021-01-13] MEDS: IBUPROFEN 400 MG TABLET (FP) PO PRN (21:41)
[2021-01-14] MEDS: glipiZIDE-XL 5 MG TAB.ER.24 PO SCH (06:22)
[2021-01-14] MEDS ORDERED: PT OWN MED DRAWER 7, Y5N ONE ×3 (08:22→19:07)
[2021-01-14] MEDS: PANTOPRAZOLE 20 MG TABLET PO SCH (09:45)
[2021-01-14] MEDS: ASPIRIN 81 MG CHEWABLE TABLETS PO SCH (09:45)
[2021-01-14] MEDS: propRANOLol HCL 10 MG TABLET PO SCH ×2 (09:45→21:09)
[2021-01-14] MEDS: LISINOPRIL 20 MG TABLET PO SCH ×2 (09:45→21:09)
[2021-01-14] MEDS: FLUTICASONE PROP 0.05% 16 GM NASAL SPRAY NS SCH (09:45)
[2021-01-14] MEDS: PRENATAL VITAMINS W/ FOLIC ACID TABLET (FP) PO SCH (09:45)
[2021-01-14] MEDS: FINASTERIDE 5 MG TABLET (FP) PO SCH (09:45)
[2021-01-14] MEDS: IBUPROFEN 400 MG TABLET (FP) PO PRN (09:47)
[2021-01-14] MEDS: LIDOCAINE HCL 5% TOP OINTMENT 50 GM TUBE TP SCH ×2 (10:28→21:10)
[2021-01-14] MEDS: TAMSULOSIN HCL 0.4 MG CAP PO SCH (21:09)
[2021-01-14] MEDS: THIAMINE HCL 100 MG TABLET (FP) PO SCH (21:09)
[2021-01-14] MEDS: QUEtiapine FUMARATE 200 MG TABLET PO SCH (21:09)
[2021-01-14] MEDS: ATORVASTATIN CA 20 MG TABLET (FP) PO SCH (21:09)
[2021-01-15] MEDS: MAG HYDROX/AL HYDROX/SIMETH 30 ML UNIT-DOSE CUP PO PRN (00:40)
[2021-01-15] MEDS: glipiZIDE-XL 5 MG TAB.ER.24 PO SCH (07:02)
[2021-01-15 07:09] VITALS: TEMP 97.1
[2021-01-15] MEDS ORDERED: PT OWN MED DRAWER 7, Y5N ONE ×2 (07:26→18:49)
[2021-01-15] MEDS: PRENATAL VITAMINS W/ FOLIC ACID TABLET (FP) PO SCH (09:06)
[2021-01-15] MEDS: LIDOCAINE HCL 5% TOP OINTMENT 50 GM TUBE TP SCH ×2 (09:06→21:28)
[2021-01-15] MEDS: FINASTERIDE 5 MG TABLET (FP) PO SCH (09:06)
[2021-01-15] MEDS: PANTOPRAZOLE 20 MG TABLET PO SCH (09:06)
[2021-01-15] MEDS: FLUTICASONE PROP 0.05% 16 GM NASAL SPRAY NS SCH (09:06)
[2021-01-15] MEDS: propRANOLol HCL 10 MG TABLET PO SCH ×2 (09:06→21:27)
[2021-01-15] MEDS: ASPIRIN 81 MG CHEWABLE TABLETS PO SCH (09:06)
[2021-01-15] MEDS: LISINOPRIL 20 MG TABLET PO SCH ×2 (09:06→21:27)
[2021-01-15] MEDS: THIAMINE HCL 100 MG TABLET (FP) PO SCH (21:27)
[2021-01-15] MEDS: ATORVASTATIN CA 20 MG TABLET (FP) PO SCH (21:27)
[2021-01-15] MEDS: IBUPROFEN 400 MG TABLET (FP) PO PRN (21:27)
[2021-01-15] MEDS: TAMSULOSIN HCL 0.4 MG CAP PO SCH (21:27)
[2021-01-15] MEDS: QUEtiapine FUMARATE 200 MG TABLET PO SCH (21:27)
[2021-01-16] MEDS: glipiZIDE-XL 5 MG TAB.ER.24 PO SCH (06:21)
[2021-01-16 09:21] VITALS: BP 124/85; PULSE 101
[2021-01-16] MEDS: PANTOPRAZOLE 20 MG TABLET PO SCH (10:12)
[2021-01-16] MEDS: LISINOPRIL 20 MG TABLET PO SCH (10:12)
[2021-01-16] MEDS: PRENATAL VITAMINS W/ FOLIC ACID TABLET (FP) PO SCH (10:12)
[2021-01-16] MEDS: FINASTERIDE 5 MG TABLET (FP) PO SCH (10:12)
[2021-01-16] MEDS: propRANOLol HCL 10 MG TABLET PO SCH (10:12)
[2021-01-16] MEDS: ASPIRIN 81 MG CHEWABLE TABLETS PO SCH (10:12)
[2021-01-16] MEDS: FLUTICASONE PROP 0.05% 16 GM NASAL SPRAY NS SCH (10:14)
[2021-01-16] MEDS: LIDOCAINE HCL 5% TOP OINTMENT 50 GM TUBE TP SCH (10:31)
[2021-01-16] MEDS: NICOTINE 10 MG CARTRIDGE (INHALER) IH PRN (10:46)
[2021-01-18] MEDS ORDERED: fluPHENAZine DECANOATE 125 MG/5ML VIAL IM ONE (10:00)
== END 2021-01-16 13:25 | disposition home or self-care (01) | DRG 895 ==
LOC: YASAS 15:27 → Y3W 15:29
PROVIDERS: ADMIT Allergy & Immunology; ATTEND Allergy & Immunology
PROC: HZ42ZZZ Group Counseling for Substance Abuse Treatment, Cognitive-Behavioral (ICD-10-PCS; principal; 2021-01-02)
DX: F10.20 Alcohol dependence, uncomplicated (principal); F14.20 Cocaine dependence, uncomplicated; F19.282 Other psychoactive substance dependence with psychoactive substance-induced sleep disorder; F12.20 Cannabis dependence, uncomplicated; F17.210 Nicotine dependence, cigarettes, uncomplicated; F19.24 Other psychoactive substance dependence with psychoactive substance-induced mood disorder; F31.9 Bipolar disorder, unspecified; F20.9 Schizophrenia, unspecified; I10 Essential (primary) hypertension; J45.909 Unspecified asthma, uncomplicated; E11.9 Type 2 diabetes mellitus without complications; M17.11 Unilateral primary osteoarthritis, right knee; Z79.84 Long term (current) use of oral hypoglycemic drugs; Z98.890 Other specified postprocedural states; Z91.010 Allergy to peanuts; Z91.012 Allergy to eggs
CPT/HCPCS: 71046-TC-FY; 81003; 82962